=== PATIENT | male | born 1940 | race American Indian/Alaskan Native ===

== ENCOUNTER 2021-11-28 14:49 | Inpatient (IN) | payer MEDICARE, OTHER ==
--- NOTE | 2021-11-28 16:25 | Emergency Department Report ---
ED Fall HPI - General Chief Complaint: Fall Stated Complaint: FALL,LT LEG PAIN Time Seen by Provider: 11/28/21 15:34 Source: patient, EMS Mode of arrival: Stretcher Limitations: Other (Dementia) - History of Present Illness Initial Comments: 81-year-old male with a past medical history dementia, diabetes, hypertension presents to the hospital status post multiple falls. Collateral history obtained by nurse from patient's granddaughter. Patient was recently discharged from the hospital into rehab for 9 days. He has been home x1 week. Since then he has had 2 falls. First fall occurred last week and was unwitnessed. Patient was found down on the floor. Complaining of left hip pain since. Today 2 days ago patient had another fall. He is not reliable using his rolling walker as prescribed. Patient complains of left hip pain without other injury. - Related Data Allergies Allergy/AdvReac Type Severity Reaction Status Date / Time No Known Allergies Allergy Verified 11/28/21 15:21 ED Review of Systems ROS: Stated complaint: FALL,LT LEG PAIN Other details as noted in HPI Comment: All other systems reviewed and negative ED Past Medical Hx - Past Medical History Hx Hypertension: Yes Hx Diabetes: Yes Hx Dementia: Yes Additional medical history: hyperlipidemia ED Physical Exam - General Limitations: Physical Limitation - Other Other exam information: General: No acute distress Head: Atraumatic Eyes: normal appearance ENT: Moist mucous membranes Neck: Normal appearance, no midline tenderness Chest: Clear to auscultation bilaterally CV: Regular rate and rhythm Abdomen: Soft, normal bowel sounds, nontender, nondistended, no rebound or guarding Back: Normal inspection Extremity: Left hip pain with movement. No tenderness to left knee, left ankle, foot. Limited motion of left hip secondary to pain. Full passive motion of the right hip without grimace or pain Neuro: Alert O x 3, no facial asymmetry, speech clear, no gross motor sensory deficit Psych: Appropriate behavior Skin: No rash ED Course Vital Signs 11/28/21 11/28/21 11/28/21 15:17 15:36 15:39 Temperature 98.7 F Pulse Rate 96 H 98 H Respiratory 16 25 H 20 Rate Blood Pressure 141/85 Blood Pressure 148/88 [Left] O2 Sat by Pulse 98 89 Oximetry 11/28/21 11/28/21 11/28/21 15:41 15:43 15:45 Temperature Pulse Rate 94 H 96 H 94 H Respiratory 24 26 H 20 Rate Blood Pressure 141/85 141/85 141/85 Blood Pressure [Left] O2 Sat by Pulse 99 79 L 100 Oximetry 11/28/21 11/28/21 11/28/21 15:47 15:49 15:50 Temperature Pulse Rate 94 H 92 H 94 H Respiratory 25 H 28 H 24 Rate Blood Pressure 141/85 141/85 141/85 Blood Pressure [Left] O2 Sat by Pulse 100 Oximetry 11/28/21 11/28/21 11/28/21 15:54 15:56 15:58 Temperature Pulse Rate 94 H 94 H 95 H Respiratory 27 H 16 23 Rate Blood Pressure 141/85 141/85 141/85 Blood Pressure [Left] O2 Sat by Pulse 100 100 100 Oximetry 11/28/21 11/28/21 11/28/21 16:00 16:02 16:04 Temperature Pulse Rate 94 H 94 H 94 H Respiratory 16 23 24 Rate Blood Pressure 141/85 141/85 141/85 Blood Pressure [Left] O2 Sat by Pulse 100 96 98 Oximetry 11/28/21 11/28/21 11/28/21 16:06 16:13 16:15 Temperature Pulse Rate 94 H 91 H Respiratory 22 24 Rate Blood Pressure 141/85 141/85 141/85 Blood Pressure [Left] O2 Sat by Pulse 100 99 100 Oximetry 11/28/21 11/28/21 11/28/21 16:17 16:19 16:20 Temperature Pulse Rate 90 91 H 92 H Respiratory 26 H 27 H 24 Rate Blood Pressure 141/85 127/78 127/78 Blood Pressure [Left] O2 Sat by Pulse 96 86 93 Oximetry 11/28/21 11/28/21 11/28/21 16:22 16:25 16:27 Temperature Pulse Rate 91 H 91 H 90 Respiratory 23 25 H 27 H Rate Blood Pressure 113/77 113/77 113/77 Blood Pressure [Left] O2 Sat by Pulse 99 99 99 Oximetry 11/28/21 11/28/21 11/28/21 16:29 16:31 16:32 Temperature Pulse Rate 89 95 H Respiratory 25 H 27 H 10 L Rate Blood Pressure 113/77 113/77 141/85 Blood Pressure [Left] O2 Sat by Pulse 99 100 97 Oximetry 11/28/21 11/28/21 11/28/21 16:35 16:37 16:39 Temperature Pulse Rate 89 91 H 89 Respiratory 27 H 26 H 24 Rate Blood Pressure 113/77 113/77 113/77 Blood Pressure [Left] O2 Sat by Pulse 100 100 94 Oximetry 11/28/21 11/28/21 11/28/21 16:41 16:42 16:45 Temperature Pulse Rate 90 88 101 H Respiratory 26 H 28 H 13 Rate Blood Pressure 113/77 113/77 133/79 Blood Pressure [Left] O2 Sat by Pulse 97 100 78 L Oximetry 11/28/21 11/28/21 11/28/21 16:47 16:49 16:51 Temperature Pulse Rate 89 94 H 94 H Respiratory 22 26 H 26 H Rate Blood Pressure 141/85 141/85 141/85 Blood Pressure [Left] O2 Sat by Pulse 100 99 Oximetry 11/28/21 11/28/21 11/28/21 16:53 16:55 16:57 Temperature Pulse Rate 97 H 94 H 94 H Respiratory 23 26 H 24 Rate Blood Pressure 141/85 141/85 141/85 Blood Pressure [Left] O2 Sat by Pulse 100 91 94 Oximetry 11/28/21 11/28/21 11/28/21 16:59 17:01 17:02 Temperature Pulse Rate 93 H 95 H 94 H Respiratory 27 H 20 24 Rate Blood Pressure 141/85 141/85 133/74 Blood Pressure [Left] O2 Sat by Pulse 100 96 100 Oximetry 11/28/21 11/28/21 11/28/21 17:05 17:07 17:09 Temperature Pulse Rate 96 H 94 H 95 H Respiratory 26 H 22 26 H Rate Blood Pressure 133/74 133/74 133/74 Blood Pressure [Left] O2 Sat by Pulse 84 98 95 Oximetry 11/28/21 11/28/21 11/28/21 17:11 17:13 17:15 Temperature Pulse Rate 94 H 93 H 95 H Respiratory 23 25 H 26 H Rate Blood Pressure 133/74 133/74 133/74 Blood Pressure [Left] O2 Sat by Pulse 100 96 100 Oximetry 11/28/21 11/28/21 11/28/21 17:17 17:19 17:21 Temperature Pulse Rate 94 H 94 H 97 H Respiratory 28 H 26 H 21 Rate Blood Pressure 133/74 133/74 133/74 Blood Pressure [Left] O2 Sat by Pulse 99 100 100 Oximetry 11/28/21 11/28/2111/28/22 17:23 17:25 17:27 Temperature Pulse Rate 97 H 97 H 93 H Respiratory 25 H 17 24 Rate Blood Pressure 138/84 138/84 138/84 Blood Pressure [Left] O2 Sat by Pulse 82 L 91 96 Oximetry 11/28/21 11/28/21 11/28/21 17:29 17:31 17:33 Temperature Pulse Rate 95 H 96 H 97 H Respiratory 24 23 16 Rate Blood Pressure 138/84 138/84 138/84 Blood Pressure [Left] O2 Sat by Pulse 91 99 Oximetry 11/28/21 11/28/21 11/28/21 17:35 17:37 17:39 Temperature Pulse Rate 96 H 98 H 95 H Respiratory 19 21 19 Rate Blood Pressure 138/84 138/84 138/84 Blood Pressure [Left] O2 Sat by Pulse 100 Oximetry 11/28/21 11/28/21 11/28/21 17:41 17:43 17:45 Temperature Pulse Rate 98 H 97 H 97 H Respiratory 25 H 28 H 29 H Rate Blood Pressure 138/84 120/75 120/75 Blood Pressure [Left] O2 Sat by Pulse 100 99 100 Oximetry 11/28/21 11/28/21 17:47 17:49 Temperature Pulse Rate 99 H 98 H Respiratory 29 H 25 H Rate Blood Pressure 120/75 120/75 Blood Pressure [Left] O2 Sat by Pulse 96 Oximetry - Consultations Consultation #1: 11/28/21 18:[address] Vela orthopedic surgery who has agreed to consult and manage patient's orthopedic issues. ED Medical Decision Making - Lab Data Result diagrams: 11/28/21 17:14 11/28/21 17:14 Lab Results 11/28/21 11/28/21 11/28/21 Range/Units 16:59 17:14 17:14 WBC 10.2 (4.5-11.0) K/mm3 RBC 4.63 (3.65-5.03) M/mm3 Hgb 15.0 (11.8-15.2) gm/dl Hct 44.7 (35.5-45.6) % MCV 97 H (84-94) fl MCH 32 (28-32) pg MCHC 34 (32-34) % RDW 15.4 H (13.2-15.2) % Plt Count 167 (140-440) K/mm3 Lymph % (Auto) 15.3 (13.4-35.0) % [place] % (Auto) 13.0 H (0.0-7.3) % Eos % (Auto) 3.1 (0.0-4.3) % Baso % (Auto) 0.4 (0.0-1.8) % Lymph # (Auto) 1.6 (1.2-5.4) K/mm3 [place] # (Auto) 1.3 H (0.0-0.8) K/mm3 Eos # (Auto) 0.3 (0.0-0.4) K/mm3 Baso # (Auto) 0.0 (0.0-0.1) K/mm3 Seg Neutrophils % 68.2 (40.0-70.0) % Seg Neutrophils # 6.9 (1.8-7.7) K/mm3 Sodium 149 H (137-145) mmol/L Potassium 3.7 (3.6-5.0) mmol/L Chloride 112.6 H (98-107) mmol/L Carbon Dioxide 25 (22-30) mmol/L Anion Gap 15 mmol/L BUN 18 (9-20) mg/dL Creatinine 0.8 (0.8-1.3) mg/dL Estimated GFR > 60 ml/min BUN/Creatinine Ratio 23 % Glucose 103 H (75-100) mg/dL Calcium 9.2 (8.4-10.2) mg/dL Total Bilirubin 0.90 (0.1-1.2) mg/dL AST 22 (5-40) units/L ALT 14 (7-56) units/L Alkaline Phosphatase 83 (35-129) units/L Total Creatine Kinase 621 H (55-170) units/L CK-MB (CK-2) 1.9 (0.0-4.0) ng/mL CK-MB (CK-2) Rel Index 0.3 (0-4) Troponin T < 0.010 (0.00-0.029) ng/mL Total Protein 6.9 (6.3-8.2) g/dL Albumin 4.0 (3.9-5) g/dL Albumin/Globulin Ratio 1.4 % Urine Color Yellow (Yellow) Urine Turbidity Clear (Clear) Specific [place] (Man) 1.010 (1.003-1.030) Ur Protein (Man) Negative (Negative) mg/dL Ur Ketones (Man) Negative (Negative) Ur Nitrite (Man) Negative (Negative) Ur Reducing Substances Not Reportable Urine Bilirubin (Man) Negative (Negative) Urine Ictotest Not Reportable Leukocyte Esterase (Man) Negative (Negative) Urine WBC (Auto) 1.0 (0.0-6.0) /HPF Urine RBC (Auto) 4.0 (0.0-6.0) /HPF U Epithel Cells (Auto) 2.0 (0-13.0) /HPF Urine RBC (Manual) Negative (Negative) Urine Mucus Few /HPF - EKG Data -: EKG Interpreted by Me (Inferior Q waves) EKG shows normal: sinus rhythm, ST-T waves (No STEMI) Rate: normal - Radiology Data Radiology results: report reviewed CT head/brain wo con INDICATION: Multiple falls. TECHNIQUE: All CT scans at this location are performed using CT dose reduction for ALARA by means of automated exposure control. COMPARISON: None available. FINDINGS: There is no evidence of hemorrhage, hydrocephalus, brain edema, or mass effect/mass lesion. There are generalized changes of advancing age with age-commensurate generalized ventricular and cisternal/sulcal prominence without superimposed focal brain atrophy. There is mild mucosal thickening in the right sphenoid sinus. The other par anasal sinuses are clear. IMPRESSION: 1. No acute findings. CT CERVICAL SPINE WITHOUT CONTRAST INDICATION: multple falls. TECHNIQUE: Axial CT images of the spine were obtained. Sagittal and coronal reformatted images were produced. All CT scans at this location are performed using CT dose reduction for ALARA by means of automated exposure control. COMPARISON: None available. FINDINGS: ACUTE FRACTURE(S) OR SUBLUXATION: None. 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 PARASPINAL SOFT TISSUES: No soft tissue swelling or other acute abnormalities. ADDITIONAL FINDINGS: No significant additional findings. IMPRESSION: 1. No acute fracture or subluxation in the spine in neutral position. LEFT HIP 2 VIEWS INDICATION / CLINICAL INFORMATION: fall, hip pain. COMPARISON: None available. FINDINGS: BONES / JOINT(S): Impacted femoral neck fracture is not well evaluated due to difficulty with positioning. Underlying osteopenia. 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 SOFT TISSUES: Atherosclerotic vascular calcification. ADDITIONAL FINDINGS: None. - Medical Decision Making 81-year-old male with several falls at home since discharge from the rehab facility presenting with left hip pain. X-ray reveals femoral neck fracture. CT head and cervical spine unremarkable without signs of trauma to head and neck. Labs and urine unremarkable. patient will be admitted to the hospital service for further treatment Patient deftly has underlying dementia and required IM sedation to obtain IV access Critical Care Time: No Critical care attestation.: If time is entered above; I have spent that time in minutes in the direct care of this critically ill patient, excluding procedure time. ED Disposition Clinical Impression: Closed left hip fracture, Fall, Dementia Disposition: ADMITTED INPATIENT Is pt being admited?: Yes Condition: Stable Time of Disposition: 19:49 (DR Martines/hosptialist)
--- NOTE | 2021-11-28 17:00 | XRay Report ---
LEFT HIP 2 VIEWS INDICATION / CLINICAL INFORMATION: fall, hip pain. COMPARISON: None available. FINDINGS: BONES / JOINT(S): Impacted femoral neck fracture is not well evaluated due to difficulty with positio arelis. Underlying osteopenia. 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 SOFT TISSUES: Atherosclerotic vascular calcification. ADDITIONAL FINDINGS: None. Signer Name: Francis Payton MD Signed: 11/28/2021 4:56 PM Workstation Name: [employer]
[2021-11-28 17:32] LABS: Mucus,Urine FEW /HPF
[2021-11-28 17:38] LABS: Color,Urine Yellow (Yellow)
[2021-11-28 17:45] LABS: Basophils % (Auto) 0.4 % (0.0-1.8); Eosinophils # (Auto) 0.3 K/mm3 (0.0-0.4); Eosinophils % (Auto) 3.1 % (0.0-4.3); Hematocrit 44.7 % (35.5-45.6); Lymphocytes # (Auto) 1.6 K/mm3 (1.2-5.4); Lymphocytes % (Auto) 15.3 % (13.4-35.0); Mean Corpuscular HGB Conc 34 % (32-34); Mean Corpuscular Volume 97 fl (84-94); Monocytes # (Auto) 1.3 K/mm3 (0.0-0.8); Platelet Count 167 K/mm3 (140-440); Red Blood Count 4.63 M/mm3 (3.65-5.03); Red Cell Distribution Width 15.4 % (13.2-15.2)
[2021-11-28 17:59] LABS: Creatine Kinase MB 1.9 ng/mL (0.0-4.0)
[2021-11-28 18:01] LABS: Alanine Aminotransferase 14 units/L (7-56); BUN/Creatinine Ratio 23; Blood Urea Nitrogen 18 mg/dL (9-20); Calcium 9.2 mg/dL (8.4-10.2); Hemolysis Index 13
[2021-11-28] MEDS ORDERED: ONDANSETRON 4 MG/2 ML INJ IV ONE (18:01)
[2021-11-28] MEDS ORDERED: MORPHINE 4 MG/1 ML INJ IV ONE (18:01)
--- NOTE | 2021-11-28 19:43 | Cat Scan Report ---
CT head/brain wo con INDICATION: Multiple falls. TECHNIQUE: All CT scans at this location are performed using CT dose reduction for ALARA by means of automated e xposure control. COMPARISON: None available. FINDINGS: There is no evidence of hemorrhage, hydrocephalus, brain edema, or mass effect/mass lesion. There are generalized changes of advancing age with age-commensurate generalized ventricular and cisternal/sul sathya prominence without superimposed focal brain atrophy. There is mild mucosal thickening in the right sphenoid sinus. The other paranasal sinuses are clear. IMPRESSION: 1. No acute findings. Signer Name: Surya Duarte MD Signed: 11/28/2021 7:39 PM Workstation Name: [id number]
--- NOTE | 2021-11-28 19:44 | Cat Scan Report ---
CT CERVICAL SPINE WITHOUT CONTRAST INDICATION: multple falls. TECHNIQUE: Axial CT images of the spine were obtained. Sagittal and coronal reformatted images were produced. Al l CT scans at this location are performed using CT dose reduction for ALARA by means of automated exp osure control. COMPARISON: None available. FINDINGS: ACUTE FRACTURE(S) OR SUBLUXATION: None. SPINAL DEGENERATIVE CHANGES: There is DISH and ossification of the posterior longitudinal ligament th roughout the cervical spine with resultant moderate canal stenosis at multiple levels. PARASPINAL SOFT TISSUES: No soft tissue swelling or other acute abnormalities. ADDITIONAL FINDINGS: No significant additional findings. IMPRESSION: 1. No acute fracture or subluxation in the spine in neutral position. Signer Name: Surya Duarte MD Signed: 11/28/2021 7:40 PM Workstation Name: [id number]
[2021-11-28] MEDS ORDERED: HALOPERIDOL LACTATE 5 MG/1 ML INJ IM ONE (19:58)
[2021-11-28] MEDS ORDERED: ONDANSETRON 4 MG/2 ML INJ IV PRN (20:27)
[2021-11-28] MEDS ORDERED: HYDROmorphone 0.5 MG/0.5 ML INJ IV PRN (20:27)
[2021-11-28] MEDS ORDERED: oxyCODONE /ACETAMINOPHEN 5-325MG TAB PO PRN (20:27)
[2021-11-28] MEDS ORDERED: ALBUTEROL 2.5 MG/3 ML NEBU IH PRN (20:27)
[2021-11-28] MEDS ORDERED: ACETAMINOPHEN 325 MG TAB PO PRN (20:27)
--- NOTE | 2021-11-28 20:27 | History and Physical Report ---
History of Present Illness Chief complaint: He fell and hurt his leg History of present illness: 81 YO Male with Vascular Dementia with Behavioral Disturbance, Cerebral Atherosclerosis, HTN, DM, HLD, Metabolic Syndrome, Recurrent Fall presents to ED for evaluation. Patient has diminished cognition and is unable to provide history. Patient history per EMS staff, ED staff, as well as patient family was made available by telephone for interview. As per family the patient experienced increased weakness and confusion over the past 2 weeks. Patient also has experienced multiple falls. Patient fell landing on his left side 2 days ago and experienced pain in his left hip with inability to ambulate since that time. Patient has complained of persistent and worsening pain in his left hip. EMS was notified and upon arrival the patient was found to be in distress and subsequent transported to [facility] for further care and evaluation of the aforementioned symptoms. The patient was seen and evaluated in the emergency department. All lab and imaging studies reviewed. Patient underwent x-ray of the hip and was found to have a left femoral neck fracture. Orthopedic surgery service consulted. Patient pending surgical intervention. No reports of fever, chills, chest pain, palpitation, adductive cough, skin rash, recent contact, known exposure to COVID-19. No prior admission for review. No medication listed at time of admission for reconciliation. Advanced care planning conducted in ED. Past History Past Medical History: diabetes, hypertension, hyperlipidemia, other (See HPI) Past Surgical History: No surgical history, Other (Reviewed) Social history: . denies: smoking, alcohol abuse, prescription drug abuse Family history: diabetes, hypertension Medications and Allergies Allergies Allergy/AdvReac Type Severity Reaction Status Date / Time No Known Allergies Allergy Verified 11/28/21 15:21 Review of Systems ROS unobtainable: due to mental status Exam - Constitutional Vitals: Temp Pulse Resp BP Pulse Ox 98.0 F 91 H 18 140/85 96 11/28/21 20:09 11/28/21 20:09 11/28/21 20:09 11/28/21 20:11/28/21 20:09 General appearance: Present: mild distress - EENT Eyes: Present: PERRL ENT: hearing intact, clear oral mucosa - Neck Neck: Present: supple, normal ROM - Respiratory Respiratory effort: normal Respiratory: bilateral: CTA - Cardiovascular Heart Sounds: Present: S1 & S2. Absent: rub, click - Extremities Extremities: pulses symmetrical, No edema Extremity abnormal: edema, tenderness, other (Left hip) Peripheral Pulses: within normal limits - Abdominal General gastrointestinal: Present: soft, non-tender, non-distended, normal bowel sounds Male genitourinary: Present: normal - Integumentary Integumentary: Present: clear, warm, dry - Musculoskeletal Musculoskeletal: gait normal, strength equal bilaterally - Psychiatric Psychiatric: no appropriate mood/affect, no intact judgment & insight, no memory intact - Neurologic Neurologic: CNII-XII intact, moves all extremities, no gait normal HEART Score - HEART Score Troponin: Troponin T < 0.010 ng/mL (0.00-0.029) 11/28/21 17:14 Results - Labs CBC & Chem 7: 11/28/21 17:14 11/28/21 17:14 Labs: Abnormal lab results 11/28/21 11/28/21 Range/Units 17:14 17:14 MCV 97 H (84-94) fl RDW 15.4 H (13.2-15.2) % [place] % (Auto) 13.0 H (0.0-7.3) % [place] # (Auto) 1.3 H (0.0-0.8) K/mm3 Sodium 149 H (137-145) mmol/L Chloride 112.6 H (98-107) mmol/L Glucose 103 H (75-100) mg/dL Total Creatine Kinase 621 H (55-170) units/L Assessment and Plan - Patient Problems (1) Closed left hip fracture Current Visit: Yes Status: Acute Qualifiers: Encounter type: initial encounter Qualified Code(s): S72.002A - Fracture of unspecified part of neck of left femur, initial encounter for closed fracture Plan to address problem: X-ray left hip, CT cervical spine, pain control, n.p.o. after midnight, orthopedic surgery team consulted. Patient pending surgical intervention. (2) Vascular dementia with behavioral disturbance Current Visit: Yes Status: Acute Plan to address problem: verbal prompting, verbal redirection, benzodiazepine therapy as clinically indicated. (3) Cerebral atherosclerosis Current Visit: Yes Status: Acute Plan to address problem: Risk factor reduction, antiplatelet therapy as clinically indicated. (4) Hypertension Current Visit: Yes Status: Acute Qualifiers: Hypertension type: primary hypertension Qualified Code(s): I10 - Essential (primary) hypertension Plan to address problem: Monitor blood pressure every shift, continue medical management. (5) Diabetes Current Visit: Yes Status: Acute Plan to address problem: Consistent carbohydrate diet, Accu-Chek, insulin protocol, hypoglycemia protocol (6) Hyperlipidemia Current Visit: Yes Status: Acute Qualifiers: Hyperlipidemia type: mixed hyperlipidemia Qualified Code(s): E78.2 - Mixed hyperlipidemia Plan to address problem: Low-cholesterol diet, supportive care. (7) Obesity (BMI 30.0-34.9) Current Visit: Yes Status: Acute Plan to address problem: Balanced diet, increase physical activity discharge. (8) Metabolic syndrome Current Visit: Yes Status: Acute Plan to address problem: Blood pressure control, weight reduction, diabetes control, risk factor reduction. (9) DVT prophylaxis Current Visit: Yes Status: Acute Plan to address problem: SCD to bilateral lower extremities while in bed (10) Advance care planning Current Visit: Yes Status: Acute Plan to address problem: Disease education conducted, care plan discussed, diagnoses discussed, prognosis discussed, patient is full code, +30 minutes. (11) Preventative health care Current Visit: Yes Status: Acute Plan to address problem: Patient family counseled regarding home safety precautions, fall risk protocol, outpatient follow-up with primary care physician for all age and risk factor appropriate screening test. +30 minutes.
[2021-11-28] MEDS ORDERED: DEXTROSE 50% IN WATER (25GM) 50 ML SYRINGE IV PRN (20:28)
[2021-11-28] MEDS ORDERED: MORPHINE 4 MG/1 ML INJ ONE (20:55)
--- NOTE | 2021-11-28 23:12 | Cat Scan Report ---
CT PELVIS WITHOUT CONTRAST INDICATION / CLINICAL INFORMATION: left hip pain, r/o displaced femoral neck fx. TECHNIQUE: Axial CT images were obtained through the pelvis without contrast. [facility] CT dose reduction for ALARA by means of automated exposure control. COMPARISON: Left hip x-ray 11/28/2021 FINDINGS: Moderate bilateral facet arthropathy is demonstrated at L4-5 and L5-S1. Moderate diffuse osteopenia. Moderate right femoral acetabular joint degenerative change. No acute fracture of the right hip or ri ght hemipelvis. Left hemipelvis appears intact. No fracture of the left acetabulum. Moderately angulated subcapital femoral neck fracture of the left hip is demonstrated. Mild offset of fracture fragments present. Moderate diffuse intimal calcification of the aorta and iliofemoral vessels. Colonic diverticulosis without diverticulitis. Prior prostatectomy. IMPRESSION: 1. Minimally offset and angulated acute subcapital left femoral neck fracture. Signer Name: Saravanan Machado II, MD Signed: 11/28/2021 11:08 PM Workstation Name: [id number]
[2021-11-28] MEDS: INSULIN REGULAR, HUMAN 100 UNITS/1 ML SUB-Q SCH (23:13)
[2021-11-29 04:58] LABS: Blood Urea Nitrogen 16 mg/dL (9-20); Hemolysis Index 0
[2021-11-29 04:59] LABS: BUN/Creatinine Ratio 23
[2021-11-29] MEDS: SODIUM CHLORIDE 0.9% 1000 ML 1,000 ML IV SCH (06:29)
[2021-11-29] MEDS: INSULIN REGULAR, HUMAN 100 UNITS/1 ML SUB-Q SCH ×4 (09:26→22:35)
--- NOTE | 2021-11-29 13:39 | Progress Note ---
Assessment and Plan 81 y/o male with a history of dementia presented with c/o left hip pain after having a fall recently. patient unable to give exact details...xrays taken in ED reveal left femoral neck fracture. Orthopedic consulted and patient admitted for further evaluation and management. 11/29: X-ray: showed left femoral neck fracture. Orthopedics consulted, pending evaluation. Continue supportive care and pain management, IV fluid hydration. Possible surgery tomorrow morning, n.p.o. after midnight Assessment and plan: -- Closed left hip fracture X-ray left hip, CT cervical spine, pain control, n.p.o. after midnight, orthopedic surgery team consulted. Patient pending surgical intervention. -- Vascular dementia with behavioral disturbance verbal prompting, verbal redirection, benzodiazepine therapy as clinically indicated. -- Cerebral atherosclerosis Risk factor reduction, antiplatelet therapy as clinically indicated. -- Hypertension Monitor blood pressure every shift, continue medical management. -- Diabetes type II Consistent carbohydrate diet, Accu-Chek, insulin protocol, hypoglycemia protocol -- Hyperlipidemia Low-cholesterol diet, supportive care. -- Obesity (BMI 30.0-34.9) Balanced diet, increase physical activity discharge. -- Metabolic syndrome Blood pressure control, weight reduction, diabetes control, risk factor reduction. -- DVT prophylaxis SCD to bilateral lower extremities while in bed -- Full CODE STATUS Subjective Date of service: 11/29/21 Interval history: Patient seen and examined. Medical records and medication list reviewed. No acute event overnight noted by the RN. Patient denies any chest pain or difficulty breathing. Pending orthopedic consult, patient complains of left hip pain Discussed plan of care at bedside with patient. Objective - Exam Narrative Exam: GENERAL: well-developed and obese -Nigerian elderly male lying on bed appeared to be in no discomfort. HEENT: Normocephalic. Atraumatic. No conjunctival congestion or icterus. Patient has moist mucous membranes. NECK: Supple. Trachea midline. CHEST/LUNGS: Clear to auscultated bilaterally, breathing nonlabored. No wheezes crackles or rhonchi. HEART/CARDIOVASCULAR: Regular in rate and rhythm. S1 and S2 positive. ABDOMEN: Abdomen is soft, nontender. Patient has normal bowel sounds. SKIN: There is no rash. Warm and dry. NEURO: No focal motor deficit. Follows command. MUSCULOSKELETAL: Left leg externally rotated and bended. Unable to move left leg EXTRIMITY: No edema, no cyanosis or clubbing. PSYCH: Cooperative but confused. - Constitutional Vitals: Vital Signs - 12hr 11/29/21 11/29/21 11/29/21 05:37 08:29 10:08 Temperature 98.3 F 97.9 F Pulse Rate 82 76 Respiratory 20 18 Rate Blood Pressure 128/81 149/92 O2 Sat by Pulse 100 98 98 Oximetry - Labs CBC & Chem 7: 12/02/21 05:21 12/04/21 04:45 Labs: Abnormal lab results 11/28/21 11/28/21 11/29/21 Range/Units 17:14 17:14 04:20 MCV 97 H (84-94) fl RDW 15.4 H (13.2-15.2) % [place] % (Auto) 13.0 H (0.0-7.3) % [place] # (Auto) 1.3 H (0.0-0.8) K/mm3 Sodium 149 H 146 H (137-145) mmol/L Chloride 112.6 H 112.0 H (98-107) mmol/L Creatinine 0.7 L (0.8-1.3) mg/dL Glucose 103 H 120 H (75-100) mg/dL POC Glucose (70-105) mg/dL Total Creatine Kinase 621 H (55-170) units/L 11/29/21 Range/Units 07:30 MCV (84-94) fl RDW (13.2-15.2) % [place] % (Auto) (0.0-7.3) % [place] # (Auto) (0.0-0.8) K/mm3 Sodium (137-145) mmol/L Chloride (98-107) mmol/L Creatinine (0.8-1.3) mg/dL Glucose (75-100) mg/dL POC Glucose 108 H (70-105) mg/dL Total Creatine Kinase (55-170) units/L HEART Score - HEART Score Troponin: Troponin T < 0.010 ng/mL (0.00-0.029) 11/28/21 17:14
--- NOTE | 2021-11-29 14:19 | Consultation ---
History of Present Illness - HPI Consult date: 11/29/21 Consult reason: fracture History of present illness: 81 y/o male with c/o left hip pain after fall recently, hx of dementia and unable to give exact details...xrays taken in ED reveal left femoral neck fracture... Past History Past Medical History: diabetes, hypertension, hyperlipidemia, other (See HPI) Past Surgical History: No surgical history, Other (Reviewed) Social history: . denies: smoking, alcohol abuse, prescription drug abuse Family history: diabetes, hypertension Medications and Allergies Allergies Allergy/AdvReac Type Severity Reaction Status Date / Time No Known Allergies Allergy Verified 11/28/21 15:21 Active Meds: Active Medications Acetaminophen (Acetaminophen 325 Mg Tab) 650 mg PO Q4H PRN PRN Reason: Pain MILD(1-3)/Fever >100.5/[place] Albuterol (Albuterol 2.5 Mg/3 Ml Nebu) 2.5 mg IH Q4HRT PRN PRN Reason: Shortness Of Breath Dextrose (Dextrose 50% In Water (25gm) 50 Ml Syringe) 50 ml IV Q30MIN PRN; Protocol PRN Reason: Hypoglycemia Hydromorphone HCl (Hydromorphone 0.5 Mg/0.5 Ml Inj) 0.5 mg IV Q3H PRN PRN Reason: Pain , Severe (7-10) Sodium Chloride (Nacl 0.9% 1000 Ml) 1,000 mls @ 42 mls/hr IV DIRECT FLORINDA Last Admin: 11/29/21 06:29 Dose: 42 mls/hr Insulin Human Regular (Insulin Regular, Human 100 Units/1 Ml) 0 units SUB-Q ACHS FLORINDA; Protocol Last Admin: 11/29/21 12:36 Dose: Not Given Ondansetron HCl (Ondansetron 4 Mg/2 Ml Inj) 4 mg IV Q8H PRN PRN Reason: Nausea And Vomiting Oxycodone/Acetaminophen (Oxycodone /Acetaminophen 5-325mg Tab) 1 tab PO Q6H PRN PRN Reason: Pain, Moderate (4-6) Sodium Chloride (Sodium Chloride 0.9% 10 Ml Flush Syringe) 10 ml IV BID [facility] Last Admin: 11/29/21 09:27 Dose: 10 ml Sodium Chloride (Sodium Chloride 0.9% 10 Ml Flush Syringe) 10 ml IV PRN PRN PRN Reason: LINE FLUSH Physical Examination - Physical exam Narrative exam: LLE - ++ shortening and externally rotated, dec PROM, mild swelling, distal n/v intact.... Eyes: PERRL ENT: Positive: clear oral mucosa Respiratory effort: normal Respiratory: bilateral: CTA Rhythm: regular Heart Sounds: Positive: S1 & S2 General gastrointestinal: Positive: soft, non-tender, non-distended, normal bowel sounds Integumentary: clear, warm, dry Neurologic: Positive: CNII-XII intact, moves all extremities, gait normal. Negative: focal deficits Assessment and Plan Assessment - left femoral neck fx displaced plan - bipolar hemiarthroplasty, PT and rehab if necessary
[2021-11-30] MEDS: INSULIN REGULAR, HUMAN 100 UNITS/1 ML SUB-Q SCH ×3 (09:12→17:15)
--- NOTE | 2021-11-30 09:42 | Electrocardiograph Report ---
[facility] Test Date: 2021-11-28 Test Time: 16:26:46 Pat Name: JARON RAYO Department: Room: A373 1 Gender: M Multiple Needle Stitcher: NICOLAS : 1940 Requested By: SUDHAKAR RUGGIERO Order Number: [id number] Reading MD: Salvatore Atkinson Measurements Intervals [place] Rate: 90 P: 28 AR: 198 QRS: -87 QRSD: 93 T: 57 QT: 348 QTc: 426 Interpretive Statements Sinus rhythm Probable left atrial enlargement nonspecific st-t No previous ECG available for comparison Electronically Signed On 11-30-2021 9:42:34 EDT by Salvatore Atkinson
--- NOTE | 2021-11-30 12:40 | Anesthesia Consultation ---
Anesthesia Consult and Med Hx Date of service: 11/30/21 - Airway Anesthetic Teeth Evaluation: Poor (multiple missing, broken teeth) ROM Head & Neck: Adequate Mental/Hyoid Distance: Adequate Mallampati Class: Class III Intubation Access Assessment: Possibly Difficult - Pre-Operative Health Status ASA Pre-Surgery Classification: ASA3 Proposed Anesthetic Plan: General - Pulmonary Hx Smoking: No (unknown) - Cardiovascular System Hx Hypertension: Yes - Central Nervous System Hx Back Pain: Yes (closed left hip fracture) Hx Psychiatric Problems: Yes (vascular dementia with behavior disturbance) - Endocrine Hx Non-Insulin Dependent Diabetes: Yes - Other Systems Hx Obesity: Yes (BMI 33.2)
--- NOTE | 2021-11-30 14:27 | Progress Note ---
Assessment and Plan 81 y/o male with a history of dementia presented with c/o left hip pain after having a fall recently. patient unable to give exact details...xrays taken in ED reveal left femoral neck fracture. Orthopedic consulted and patient admitted fo r further evaluation and management. 11/29: X-ray: showed left femoral neck fracture. Orthopedics consulted, pending evaluation. Continue supportive care and pain management, IV fluid hydration. Possible surgery tomorrow morning, n.p.o. after midnight 11/30: Plan for left hip surgery today. N.p.o. now, continue IV fluid. Continue pain management and supportive care. Patient appears agitated, ordered for restraint. Assessment and plan: -- Closed left hip fracture X-ray left hip, CT cervical spine, pain control, n.p.o. now, orthopedic surgery team consulted. Patient pending surgical intervention. -- Vascular dementia with behavioral disturbance verbal prompting, verbal redirection, benzodiazepine therapy as clinically indicated. -- Cerebral atherosclerosis Risk factor reduction, antiplatelet therapy as clinically indicated. -- Hypertension Monitor blood pressure every shift, continue medical management. -- Diabetes type II Consistent carbohydrate diet, Accu-Chek, insulin protocol, hypoglycemia protocol -- Hyperlipidemia Low-cholesterol diet, supportive care. -- Obesity (BMI 30.0-34.9) Balanced diet, increase physical activity discharge. -- Metabolic syndrome Blood pressure control, weight reduction, diabetes control, risk factor redu ction. -- DVT prophylaxis SCD to bilateral lower extremities while in bed -- Full CODE STATUS Subjective Date of service: 11/30/21 Interval history: Patient seen and examined. Medical records and medication list reviewed. No acute event overnight noted by the RN. Patient denies any chest pain or difficulty breathing. Patient appears little agitated today, ordered for restraint N.p.o. now, plan for left hip surgery today Discussed plan of care at bedside with patient's RN. Objective - Exam Narrative Exam: GENERAL: well-developed and obese -Algerian elderly male lying on bed appeared to be in no discomfort. HEENT: Normocephalic. Atraumatic. No conjunctival congestion or icterus. Patient has moist mucous membranes. NECK: Supple. Trachea midline. CHEST/LUNGS: Clear to auscultated bilaterally, breathing nonlabored. No wheezes crackles or rhonchi. HEART/CARDIOVASCULAR: Regular in rate and rhythm. S1 and S2 positive. ABDOMEN: Abdomen is soft, nontender. Patient has normal bowel sounds. SKIN: There is no rash. Warm and dry. NEURO: No focal motor deficit. Follows command. MUSCULOSKELETAL: Left leg externally rotated and bended. Unable to move left leg EXTRIMITY: No edema, no cyanosis or clubbing. PSYCH: confused. - Constitutional Vitals: Vital Signs - 12hr 11/30/21 11/30/21 11/30/21 06:39 07:52 11:43 Temperature 98.1 F 98.3 F Pulse Rate 77 80 Respiratory 20 18 Rate Blood Pressure 143/79 154/78 O2 Sat by Pulse 96 98 95 Oximetry - Labs CBC & Chem 7: 12/02/21 05:21 12/04/21 04:45 HEART Score - HEART Score Troponin: Troponin T < 0.010 ng/mL (0.00-0.029) 11/28/21 17:14
--- NOTE | 2021-11-30 21:44 | Progress Note ---
Assessment and Plan Assessment - left femoral neck fx displaced plan - bipolar hemiarthroplasty, PT and rehab if necessary Subjective Date of service: 11/30/21 Interval history: patient seen earlier today, appeared to be resting comfortably, Objective Vital signs: Vital Signs - 12hr 11/30/21 11/30/21 11:43 21:37 Temperature 98.3 F Pulse Rate 80 Respiratory 18 Rate Blood Pressure 154/78 O2 Sat by Pulse 95 96 Oximetry Narrative Exam: LLE - ++ shortening and externally rotated, dec PROM, mild swelling, distal n/v intact.... - Labs CBC & BMP: 11/28/21 17:14 11/29/21 04:20
[2021-12-01] MEDS: INSULIN REGULAR, HUMAN 100 UNITS/1 ML SUB-Q SCH ×5 (00:24→22:18)
[2021-12-01] MEDS: SODIUM CHLORIDE 0.9% 1000 ML 1,000 ML IV SCH (06:13)
[2021-12-01 06:53] LABS: Basophils # (Auto) 0.1 K/mm3 (0.0-0.1); Basophils % (Auto) 0.6 % (0.0-1.8); Eosinophils # (Auto) 0.2 K/mm3 (0.0-0.4); Eosinophils % (Auto) 1.9 % (0.0-4.3); Hematocrit 47.3 % (35.5-45.6); Hemoglobin 15.1 gm/dl (11.8-15.2); Lymphocytes # (Auto) 1.3 K/mm3 (1.2-5.4); Lymphocytes % (Auto) 14.3 % (13.4-35.0); Mean Corpuscular HGB Conc 32 % (32-34); Mean Corpuscular Volume 98 fl (84-94); Monocytes # (Auto) 0.9 K/mm3 (0.0-0.8); Monocytes % (Auto) 9.5 % (0.0-7.3); Platelet Count 122 K/mm3 (140-440); Red Blood Count 4.84 M/mm3 (3.65-5.03); Red Cell Distribution Width 14.9 % (13.2-15.2)
[2021-12-01 07:08] LABS: BUN/Creatinine Ratio 20; Blood Urea Nitrogen 16 mg/dL (9-20); Calcium 9.4 mg/dL (8.4-10.2); Hemolysis Index 5
--- NOTE | 2021-12-01 10:45 | Anesthesia Day of Surgery ---
Anesthesia Day of Surgery - Day of Surgery Patient Examined: Yes Patient H&P Reviewed: Yes Patient is NPO: Yes
[2021-12-01] MEDS ORDERED: D5W/0.45% NACL 1,000 ML IV SCH (11:00)
[2021-12-01] MEDS ORDERED: LACTATED RINGERS 1,000 ML ONE (11:08)
[2021-12-01] MEDS: LACTATED RINGERS 1,000 ML IV SCH ×2 (11:15→22:33)
[2021-12-01] MEDS ORDERED: TRANEXAMIC ACID 1,000 MG/10 ML ONE (12:13)
[2021-12-01] MEDS ORDERED: KETOROLAC 30 MG/1 ML INJ ONE (12:13)
[2021-12-01] MEDS ORDERED: SODIUM CHLORIDE 0.9% 50 ML ONE (12:14)
[2021-12-01] MEDS ORDERED: BUPIVACAINE-EPINEPHRINE/PF 0.5%-1:200,000 (10 ML) VIAL INFILTRATI ONE (12:14)
[2021-12-01] MEDS ORDERED: MORPHINE 10 MG/1 ML INJ ONE (12:14)
[2021-12-01] MEDS ORDERED: SODIUM CHLORIDE 0.9% 100 ML ONE (12:15)
[2021-12-01] MEDS ORDERED: LIDOCAINE MPF (2%) 20 MG/1 ML VIAL 5 ML ONE (12:28)
[2021-12-01] MEDS ORDERED: ROCURONIUM 50 MG/5 ML INJ IV ONE (12:28)
[2021-12-01] MEDS ORDERED: propofoL 200 MG/20 ML VIAL IV ONE (12:29)
[2021-12-01] MEDS ORDERED: fentaNYL 100 MCG/2 ML INJ ONE (12:29)
[2021-12-01] MEDS ORDERED: ceFAZolin/Water 2 GM/20 ML 2 GM/20 ML SYRINGE IV ONE (12:36)
[2021-12-01] MEDS ORDERED: ceFAZolin/STERILE WATER 2 GM/20 ML SYRINGE IV NR (13:00)
[2021-12-01] MEDS ORDERED: ePHEDrine SULFATE 50 MG/1 ML INJ ONE (13:04)
[2021-12-01] MEDS ORDERED: HYDROmorphone 0.5 MG/0.5 ML INJ ONE (13:48)
[2021-12-01] MEDS ORDERED: HYDROmorphone 0.5 MG/0.5 ML INJ IV PRN (14:20)
[2021-12-01] MEDS ORDERED: GLYCOPYRROLATE 0.4 MG/2 ML INJ ONE (14:34)
[2021-12-01] MEDS ORDERED: MORPHINE 4 MG/1 ML INJ IV PRN (14:36)
[2021-12-01] MEDS ORDERED: KETOROLAC 30 MG/1 ML INJ IV PRN (14:36)
[2021-12-01] MEDS ORDERED: IBUPROFEN 600 MG TAB PO PRN (14:36)
[2021-12-01] MEDS ORDERED: MORPHINE 2 MG/1 ML INJ IV PRN (14:36)
--- NOTE | 2021-12-01 14:41 | Procedure Note ---
Date of procedure: 12/01/21 Pre-op diagnosis: Displaced left femoral neck fracture Post-op diagnosis: same Procedure: Left bipolar Hemiarthroplasty Procedure The patient was brought to the OR and placed on the OR table in supine position following induction and intubation by anesthesia the patient was placed in the right lateral decubitus position The left hip was then prepped and draped in the usual sterile manner a timeout procedure was done to identify the patient and the correct operative site. Next a lateral incision was made along the proximal femur was taken down sharply through skin and subcutaneous the fascia kamar was seen and incised. A Charnley retractor was placed deep within the wound next the anterior capsule was entered the femoral neck fracture was seen the remaining portion of the femoral neck was then osteotomized in line with a stem template The femoral head was retrieved using a corkscrew device measuring the size of the femoral head and a 51 mm diameter was chosen, followed by reaming and broaching to a #10 stem utilizing a neutral neck and a 32 mm head and the construct was then reduced the hip was taken through a range of motion and was found to be stable. All components were removed. Final components were assembled and inserted the hip was then reduced and taken through a range of motion and again it was found to be stable next the wound was copiously irrigated a cocktail mixture of Toradol and morphine. Again and saline was injected into the surrounding soft tissue for postop pain management following this the wound was closed in a standard routine fashion. Dressings were applied the patient tolerated the procedure there were no complications and he was sent to post anesthesia recovery Anesthesia: GETA Surgeon: RONALD DUGAN (Rk Amanda, 1st assist) Estimated blood loss: other (250 cc) Pathology: list (Portions of the left femoral head and neck sent to pathology) Specimen disposition: to lab Condition: stable Disposition: PACU
[2021-12-01] MEDS ORDERED: BUPIVACAINE-EPINEPHRINE/PF 0.5%-1:200,000 (30 ML) VIAL INFILTRATI ONE (15:22)
[2021-12-01] MEDS ORDERED: KETOROLAC 30 MG/1 ML INJ IV ONE (15:23)
[2021-12-01] MEDS ORDERED: methylPREDNISolone ACETATE 40 MG/1 ML INJ INTRA-ARTI ONE (15:23)
[2021-12-01] MEDS ORDERED: MORPHINE 10 MG/1 ML INJ IM ONE (15:24)
[2021-12-01] MEDS ORDERED: SODIUM CHLORIDE 0.9% 250 ML IVPB IV ONE (15:24)
[2021-12-01] MEDS ORDERED: SODIUM CHLORIDE 0.9% IRRIG SOLN 2000 ML IR ONE (15:25)
--- NOTE | 2021-12-01 16:24 | Progress Note ---
Assessment and Plan 81 y/o male with a history of dementia presented with c/o left hip pain after having a fall recently. patient unable to give exact details...xrays taken in ED reveal left femoral neck fracture. Orthopedic consulted and patient admitted fo r further evaluation and management. 11/29: X-ray: showed left femoral neck fracture. Orthopedics consulted, pending evaluation. Continue supportive care and pain management, IV fluid hydration. Possible surgery tomorrow morning, n.p.o. after midnight 11/30: Plan for left hip surgery today. N.p.o. now, continue IV fluid. Continue pain management and supportive care. Patient appears agitated, ordered for restraint. 12/01: Left hip surgery was postponed to today. Continue restraint as patient being agitated and unable to follow commands. Continue IV fluid hydration. Follow clinically. Assessment and plan: -- Closed left hip fracture X-ray left hip, CT cervical spine, pain control, n.p.o. after midnight, orthopedic surgery team consulted. Patient pending surgical intervention. -- Vascular dementia with behavioral disturbance verbal prompting, verbal redirection, benzodiazepine therapy as clinically indicated. -- Cerebral atherosclerosis Risk factor reduction, antiplatelet therapy as clinically indicated. -- Hypertension Monitor blood pressure every shift, continue medical management. -- Diabetes type II Consistent carbohydrate diet, Accu-Chek, insulin protocol, hypoglycemia protocol -- Hyperlipidemia Low-cholesterol diet, supportive care. -- Obesity (BMI 30.0-34.9) Balanced diet, increase physical activity discharge. -- Metabolic syndrome Blood pressure control, weight reduction, diabetes control, risk factor reduction. -- DVT prophylaxis SCD to bilateral lower extremities while in bed -- Full CODE STATUS Subjective Date of service: 12/01/21 Interval history: Patient seen and examined. Medical records and medication list reviewed. No acute event overnight noted by the RN. Patient denies any chest pain or difficulty breathing. Patient remains on restraint N.p.o. now, plan for left hip surgery postponed to today Discussed plan of care at bedside with patient's RN. Objective - Exam Narrative Exam: GENERAL: well-developed and obese -[place]incentian elderly male lying on bed appeared to be in no discomfort. HEENT: Normocephalic. Atraumatic. No conjunctival congestion or icterus. Patient has moist mucous membranes. NECK: Supple. Trachea midline. CHEST/LUNGS: Clear to auscultated bilaterally, breathing nonlabored. No wheezes crackles or rhonchi. HEART/CARDIOVASCULAR: Regular in rate and rhythm. S1 and S2 positive. ABDOMEN: Abdomen is soft, nontender. Patient has normal bowel sounds. SKIN: There is no rash. Warm and dry. NEURO: No focal motor deficit. Follows command. MUSCULOSKELETAL: Left leg externally rotated and bended. Unable to move left leg EXTRIMITY: No edema, no cyanosis or clubbing. PSYCH: confused. - Constitutional Vitals: Vital Signs - 12hr 12/01/21 12/01/21 12/01/21 06:00 08:00 11:00 Temperature 98.4 F Pulse Rate 88 88 Respiratory 20 14 Rate Blood Pressure 154/90 153/92 O2 Sat by Pulse 95 98 99 Oximetry 12/01/21 12/01/21 12/01/21 11:54 15:15 15:20 Temperature 99.2 F 97.7 F Pulse Rate 88 120 H 115 H Respiratory 14 17 20 Rate Blood Pressure 153/92 140/90 146/104 O2 Sat by Pulse 99 97 99 Oximetry 12/01/21 12/01/21 12/01/21 15:25 15:30 15:45 Temperature Pulse Rate 115 H 111 H 111 H Respiratory 20 18 16 Rate Blood Pressure 156/96 146/91 132/89 O2 Sat by Pulse 99 99 97 Oximetry 12/01/21 16:00 Temperature 98.9 F Pulse Rate 109 H Respiratory 20 Rate Blood Pressure 142/82 O2 Sat by Pulse 97 Oximetry - Labs CBC & Chem 7: 12/02/21 05:21 12/04/21 04:45 Labs: Abnormal lab results 12/01/21 12/01/21 Range/Units 06:00 06:00 Hct 47.3 H (35.5-45.6) % MCV 98 H (84-94) fl Plt Count 122 L (140-440) K/mm3 [place] % (Auto) 9.5 H (0.0-7.3) % [place] # (Auto) 0.9 H (0.0-0.8) K/mm3 Seg Neutrophils % 73.7 H (40.0-70.0) % Sodium 150 H (137-145) mmol/L Chloride 113.0 H (98-107) mmol/L HEART Score - HEART Score Troponin: Troponin T < 0.010 ng/mL (0.00-0.029) 11/28/21 17:14
--- NOTE | 2021-12-01 17:09 | Post Anesthesia Evaluation ---
- Post Anesthesia Evaluation Patient Participated: No Airway Patent: Yes Stable Respiratory Function: Yes Nausea/Vomiting: No Temp > 96.8F: Yes Pain Manageable: Yes Adequeate Hydration: Yes Anesthesia Complications: No
[2021-12-01] MEDS: MEMANTINE 5 MG TAB PO SCH (22:19)
[2021-12-01] MEDS: ceFAZolin/NS 1 GM/50 ML 1 GM/50 ML BAG IV SCH (22:19)
[2021-12-02 05:47] LABS: Hematocrit 41.6 % (35.5-45.6); Hemoglobin 13.5 gm/dl (11.8-15.2)
[2021-12-02 06:06] LABS: BUN/Creatinine Ratio 21; Blood Urea Nitrogen 27 mg/dL (9-20); Calcium 8.7 mg/dL (8.4-10.2); Hemolysis Index 6
[2021-12-02] MEDS: ceFAZolin/NS 1 GM/50 ML 1 GM/50 ML BAG IV SCH (06:23)
[2021-12-02] MEDS: INSULIN REGULAR, HUMAN 100 UNITS/1 ML SUB-Q SCH ×4 (07:30→21:07)
[2021-12-02] MEDS: MEMANTINE 5 MG TAB PO SCH ×2 (09:33→21:02)
[2021-12-02] MEDS: ENOXAPARIN 40 MG/0.4 ML INJ SUB-Q SCH (09:33)
[2021-12-02] MEDS: amLODIPine 10 MG TAB PO SCH (09:33)
[2021-12-02] MEDS: METOPROLOL TARTRATE 25 MG TAB PO SCH ×2 (10:00→21:02)
--- NOTE | 2021-12-02 11:35 | Post Anesthesia Evaluation ---
- Post Anesthesia Evaluation Patient Participated: No (dementia) Airway Patent: Yes Stable Respiratory Function: Yes Temp > 96.8F: Yes Pain Manageable: Yes (unable to verbalize to questions, appears to be comfortable) Anesthesia Complications: No Block Receding Appropriately: Not Applicable Patient on Ventilator: No
--- NOTE | 2021-12-02 13:14 | Progress Note ---
Assessment and Plan s/p bipolar hip replacement continue PT and observation.... Subjective Date of service: 12/02/21 Interval history: resting comfortably in bed, confused... Objective Vital signs: Vital Signs - 12hr 12/02/21 12/02/21 12/02/21 05:19 08:00 10:00 Temperature 97.3 F L Pulse Rate 102 H Respiratory 20 Rate Blood Pressure 128/64 O2 Sat by Pulse 96 94 93 Oximetry Incision: clean and dry Weight bearing status: as tolerated - Labs CBC & BMP: 12/02/21 05:21 12/02/21 05:21 Labs: Abnormal lab results 12/01/21 12/01/21 12/02/21 Range/Units 16:56 22:07 05:21 Sodium 148 H (137-145) mmol/L Chloride 112.1 H (98-107) mmol/L Carbon Dioxide 18 L (22-30) mmol/L BUN 27 H (9-20) mg/dL Glucose 152 H (75-100) mg/dL POC Glucose 143 H 134 H (70-105) mg/dL 12/02/21 Range/Units 07:07 Sodium (137-145) mmol/L Chloride (98-107) mmol/L Carbon Dioxide (22-30) mmol/L BUN (9-20) mg/dL Glucose (75-100) mg/dL POC Glucose 133 H (70-105) mg/dL
--- NOTE | 2021-12-02 14:27 | XRay Report ---
LEFT HIP 1 VIEW(S) INDICATION / CLINICAL INFORMATION: post op evaluation, s/p Lt bipolar hip replacement COMPARISON: None available. FINDINGS: Hip arthroplasty has been placed with satisfactory postoperative radiographic appearance. Signer Name: Surya Duarte MD Signed: 12/02/2021 2:22 PM Workstation Name: [id number]
[2021-12-02] MEDS: QUEtiapine 25 MG TAB PO SCH (21:02)
[2021-12-03 06:13] LABS: Calcium 8.9 mg/dL (8.4-10.2)
[2021-12-03] MEDS: INSULIN REGULAR, HUMAN 100 UNITS/1 ML SUB-Q SCH ×4 (07:30→22:15)
[2021-12-03] MEDS: amLODIPine 10 MG TAB PO SCH (10:41)
[2021-12-03] MEDS: QUEtiapine 25 MG TAB PO SCH ×2 (10:41→22:14)
[2021-12-03] MEDS: METOPROLOL TARTRATE 25 MG TAB PO SCH ×2 (10:41→22:23)
[2021-12-03] MEDS: ENOXAPARIN 40 MG/0.4 ML INJ SUB-Q SCH (10:41)
[2021-12-03] MEDS: MEMANTINE 5 MG TAB PO SCH ×2 (10:41→22:14)
--- NOTE | 2021-12-03 11:38 | Progress Note ---
Assessment and Plan 81 y/o male with a history of dementia presented with c/o left hip pain after having a fall recently. patient unable to give exact details...xrays taken in ED reveal left femoral neck fracture. Orthopedic consulted and patient admitted fo r further evaluation and management. 11/29: X-ray: showed left femoral neck fracture. Orthopedics consulted, pending evaluation. Continue supportive care and pain management, IV fluid hydration. Possible surgery tomorrow morning, n.p.o. after midnight 11/30: Plan for left hip surgery today. N.p.o. now, continue IV fluid. Continue pain management and supportive care. Patient appears agitated, ordered for restraint. 12/01: Left hip surgery was postponed to today. Continue restraint as patient being agitated and unable to follow commands. Continue IV fluid hydration. Follow clinically. 12/02: S/p left hip hemiarthroplasty yesterday. Continue pain management, requiring restraint. Pending PT OT eval. Assessment and plan: -- Closed left hip fracture X-ray left hip, CT cervical spine, pain control, orthopedic surgery team consulted. S/p left hip hemiarthroplasty on 12/01 PT OT consulted -- Vascular dementia with behavioral disturbance verbal prompting, verbal redirection, benzodiazepine therapy as clinically indicated. -- Cerebral atherosclerosis Risk factor reduction, antiplatelet therapy as clinically indicated. -- Hypertension Monitor blood pressure every shift, continue medical management. -- Diabetes type II Consistent carbohydrate diet, Accu-Chek, insulin protocol, hypoglycemia protocol -- Hyperlipidemia Low-cholesterol diet, supportive care. -- Obesity (BMI 30.0-34.9) Balanced diet, increase physical activity discharge. -- Metabolic syndrome Blood pressure control, weight reduction, diabetes control, risk factor reduction. -- DVT prophylaxis SCD to bilateral lower extremities while in bed -- Full CODE STATUS Subjective Date of service: 12/02/21 Interval history: Patient seen and examined. Medical records and medication list reviewed. No acute event overnight noted by the RN. Remains on restraint, status post hip surgery yesterday Tolerated well, tolerating diet Discussed plan of care at bedside with patient's RN. Objective - Exam Narrative Exam: GENERAL: well-developed and obese -French elderly male lying on bed appeared to be in no discomfort. HEENT: Normocephalic. Atraumatic. No conjunctival congestion or icterus. Patient has moist mucous membranes. NECK: Supple. Trachea midline. CHEST/LUNGS: Clear to auscultated bilaterally, breathing nonlabored. No wheezes crackles or rhonchi. HEART/CARDIOVASCULAR: Regular in rate and rhythm. S1 and S2 positive. ABDOMEN: Abdomen is soft, nontender. Patient has normal bowel sounds. SKIN: There is no rash. Warm and dry. NEURO: No focal motor deficit. Follows command. MUSCULOSKELETAL: No joint swelling, left hip on dressing EXTRIMITY: No edema, no cyanosis or clubbing. PSYCH: confused. - Constitutional Vitals: Vital Signs - 12hr 12/03/21 12/03/21 12/03/21 01:58 05:26 08:32 Temperature 99.2 F 98.2 F Pulse Rate 89 Respiratory 18 20 Rate Blood Pressure 122/68 O2 Sat by Pulse 93 93 Oximetry 12/03/21 10:41 Temperature Pulse Rate 102 H Respiratory Rate Blood Pressure 124/78 O2 Sat by Pulse Oximetry - Labs CBC & Chem 7: 12/02/21 05:21 12/04/21 04:45 Labs: Abnormal lab results 12/02/21 12/02/21 12/02/21 Range/Units 11:06 16:38 20:21 Sodium (137-145) mmol/L Chloride (98-107) mmol/L Carbon Dioxide (22-30) mmol/L BUN (9-20) mg/dL Creatinine (0.8-1.3) mg/dL Glucose (75-100) mg/dL POC Glucose 132 H 119 H 116 H (70-105) mg/dL 12/03/21 Range/Units 04:42 Sodium 154 H (137-145) mmol/L Chloride 114.8 H (98-107) mmol/L Carbon Dioxide 21 L (22-30) mmol/L BUN 36 H (9-20) mg/dL Creatinine 1.5 H (0.8-1.3) mg/dL Glucose 115 H (75-100) mg/dL POC Glucose (70-105) mg/dL HEART Score - HEART Score Troponin: Troponin T < 0.010 ng/mL (0.00-0.029) 11/28/21 17:14
--- NOTE | 2021-12-03 11:39 | Progress Note ---
Assessment and Plan 81 y/o male with a history of dementia presented with c/o left hip pain after having a fall recently. patient unable to give exact details...xrays taken in ED reveal left femoral neck fracture. Orthopedic consulted and patient admitted fo r further evaluation and management. 11/29: X-ray: showed left femoral neck fracture. Orthopedics consulted, pending evaluation. Continue supportive care and pain management, IV fluid hydration. Possible surgery tomorrow morning, n.p.o. after midnight 11/30: Plan for left hip surgery today. N.p.o. now, continue IV fluid. Continue pain management and supportive care. Patient appears agitated, ordered for restraint. 12/01: Left hip surgery was postponed to today. Continue restraint as patient being agitated and unable to follow commands. Continue IV fluid hydration. Follow clinically. 12/02: S/p left hip hemiarthroplasty yesterday. Continue pain management, requiring restraint. Pending PT OT eval. 12/03: Patient appears clinically stable, PT recommended SNF placement. Apply restraint as needed. Pending placement. Assessment and plan: -- Closed left hip fracture X-ray left hip, CT cervical spine, pain control, orthopedic surgery team consulted. S/p left hip hemiarthroplasty on 12/01 PT OT consulted -recommended SNF -- Vascular dementia with behavioral disturbance verbal prompting, verbal redirection, benzodiazepine therapy as clinically indicated. -- Cerebral atherosclerosis Risk factor reduction, antiplatelet therapy as clinically indicated. -- Hypertension Monitor blood pressure every shift, continue medical management. -- Diabetes type II Consistent carbohydrate diet, Accu-Chek, insulin protocol, hypoglycemia protocol -- Hyperlipidemia Low-cholesterol diet, supportive care. -- Obesity (BMI 30.0-34.9) Balanced diet, increase physical activity discharge. -- Metabolic syndrome Blood pressure control, weight reduction, diabetes control, risk factor reduction. -- DVT prophylaxis SCD to bilateral lower extremities while in bed -- Full CODE STATUS Subjective Date of service: 12/03/21 Interval history: Patient seen and examined. Medical records and medication list reviewed. No acute event overnight noted by the RN. Remains on restraint, tolerating diet PT recommended SNF placement Discussed plan of care at bedside with patient's RN. Objective - Exam Narrative Exam: GENERAL: well-developed and obese -[place] elderly male lying on bed appeared to be in no discomfort. HEENT: Normocephalic. Atraumatic. No conjunctival congestion or icterus. Patient has moist mucous membranes. NECK: Supple. Trachea midline. CHEST/LUNGS: Clear to auscultated bilaterally, breathing nonlabored. No wheezes crackles or rhonchi. HEART/CARDIOVASCULAR: Regular in rate and rhythm. S1 and S2 positive. ABDOMEN: Abdomen is soft, nontender. Patient has normal bowel sounds. SKIN: There is no rash. Warm and dry. NEURO: No focal motor deficit. Follows command. MUSCULOSKELETAL: No joint swelling, left hip on dressing EXTRIMITY: No edema, no cyanosis or clubbing. PSYCH: confused. - Constitutional Vitals: Vital Signs - 12hr 12/03/21 12/03/21 12/03/21 01:58 05:26 08:32 Temperature 99.2 F 98.2 F Pulse Rate 89 Respiratory 18 20 Rate Blood Pressure 122/68 O2 Sat by Pulse 93 93 Oximetry 12/03/21 10:41 Temperature Pulse Rate 102 H Respiratory Rate Blood Pressure 124/78 O2 Sat by Pulse Oximetry - Labs CBC & Chem 7: 12/02/21 05:21 12/04/21 04:45 Labs: Abnormal lab results 12/02/21 12/02/21 12/02/21 Range/Units 11:06 16:38 20:21 Sodium (137-145) mmol/L Chloride (98-107) mmol/L Carbon Dioxide (22-30) mmol/L BUN (9-20) mg/dL Creatinine (0.8-1.3) mg/dL Glucose (75-100) mg/dL POC Glucose 132 H 119 H 116 H (70-105) mg/dL 12/03/21 Range/Units 04:42 Sodium 154 H (137-145) mmol/L Chloride 114.8 H (98-107) mmol/L Carbon Dioxide 21 L (22-30) mmol/L BUN 36 H (9-20) mg/dL Creatinine 1.5 H (0.8-1.3) mg/dL Glucose 115 H (75-100) mg/dL POC Glucose (70-105) mg/dL HEART Score - HEART Score Troponin: Troponin T < 0.010 ng/mL (0.00-0.029) 11/28/21 17:14
[2021-12-04 05:32] LABS: BUN/Creatinine Ratio 28; Blood Urea Nitrogen 37 mg/dL (9-20); Calcium 8.8 mg/dL (8.4-10.2); Hemolysis Index 1
[2021-12-04] MEDS: INSULIN REGULAR, HUMAN 100 UNITS/1 ML SUB-Q SCH ×4 (07:30→22:36)
[2021-12-04] MEDS: DEXTROSE 5% IN WATER 1,000 ML IV SCH (10:19)
[2021-12-04] MEDS: amLODIPine 10 MG TAB PO SCH (10:20)
[2021-12-04] MEDS: METOPROLOL TARTRATE 25 MG TAB PO SCH ×2 (10:20→22:36)
[2021-12-04] MEDS: ENOXAPARIN 40 MG/0.4 ML INJ SUB-Q SCH (10:20)
[2021-12-04] MEDS: QUEtiapine 25 MG TAB PO SCH ×2 (10:20→22:02)
[2021-12-04] MEDS: MEMANTINE 5 MG TAB PO SCH ×2 (10:21→22:01)
[2021-12-04] MEDS: DOCUSATE SODIUM 100 MG CAP PO SCH ×2 (12:07→22:01)
--- NOTE | 2021-12-04 12:13 | Progress Note ---
Assessment and Plan 81 y/o male with a history of dementia presented with c/o left hip pain after having a fall recently. patient unable to give exact details...xrays taken in ED reveal left femoral neck fracture. Orthopedic consulted and patient admitted fo r further evaluation and management. 11/29: X-ray: showed left femoral neck fracture. Orthopedics consulted, pending evaluation. Continue supportive care and pain management, IV fluid hydration. Possible surgery tomorrow morning, n.p.o. after midnight 11/30: Plan for left hip surgery today. N.p.o. now, continue IV fluid. Continue pain management and supportive care. Patient appears agitated, ordered for restraint. 12/01: Left hip surgery was postponed to today. Continue restraint as patient being agitated and unable to follow commands. Continue IV fluid hydration. Follow clinically. 12/02: S/p left hip hemiarthroplasty yesterday. Continue pain management, requiring restraint. Pending PT OT eval. 12/03: Patient appears clinically stable, PT recommended SNF placement. Apply restraint as needed. Pending placement. Na level elevated, pt on D5W. follow bmp 12/04: Na level remains elevated, patient tolerating diet, cont PT. pending placement. Assessment and plan: -- Closed left hip fracture X-ray left hip, CT cervical spine, pain control, orthopedic surgery team consulted. S/p left hip hemiarthroplasty on 12/01 PT OT consulted -recommended SNF --Hypernatremia, on D5W, cont to follow BMP -- Vascular dementia with behavioral disturbance verbal prompting, verbal redirection, benzodiazepine therapy as clinically indicated. -- Cerebral atherosclerosis Risk factor reduction, antiplatelet therapy as clinically indicated. -- Hypertension Monitor blood pressure every shift, continue medical management. -- Diabetes type II Consistent carbohydrate diet, Accu-Chek, insulin protocol, hypoglycemia protocol -- Hyperlipidemia Low-cholesterol diet, supportive care. -- Obesity (BMI 30.0-34.9) Balanced diet, increase physical activity discharge. -- Metabolic syndrome Blood pressure control, weight reduction, diabetes control, risk factor reduction. -- DVT prophylaxis SCD to bilateral lower extremities while in bed -- Full CODE STATUS Subjective Date of service: 12/04/21 Interval history: Patient seen and examined. Medical records and medication list reviewed. No acute event overnight noted by the RN. Remains on restraint, tolerating diet PT recommended SNF placement Discussed plan of care at bedside with patient's RN. Objective - Exam Narrative Exam: GENERAL: well-developed and obese -[place] elderly male lying on bed appeared to be in no discomfort. HEENT: Normocephalic. Atraumatic. No conjunctival congestion or icterus. Patient has moist mucous membranes. NECK: Supple. Trachea midline. CHEST/LUNGS: Clear to auscultated bilaterally, breathing nonlabored. No wheezes crackles or rhonchi. HEART/CARDIOVASCULAR: Regular in rate and rhythm. S1 and S2 positive. ABDOMEN: Abdomen is soft, nontender. Patient has normal bowel sounds. SKIN: There is no rash. Warm and dry. NEURO: No focal motor deficit. Follows command. MUSCULOSKELETAL: No joint swelling, left hip on dressing EXTRIMITY: No edema, no cyanosis or clubbing. PSYCH: confused. - Constitutional Vitals: Vital Signs - 12hr 12/04/21 12/04/21 12/04/21 05:05 08:27 10:20 Temperature 98.5 F Pulse Rate 94 H 74 Respiratory 20 Rate Blood Pressure 115/69 133/78 O2 Sat by Pulse 91 98 Oximetry - Labs CBC & Chem 7: 12/02/21 05:21 12/05/21 10:45 Labs: Abnormal lab results 12/03/21 12/03/21 12/03/21 Range/Units 11:53 16:37 22:14 Sodium (137-145) mmol/L Chloride (98-107) mmol/L BUN (9-20) mg/dL Glucose (75-100) mg/dL POC Glucose 138 H 112 H 135 H (70-105) mg/dL 12/04/21 Range/Units 04:45 Sodium 153 H (137-145) mmol/L Chloride 115.0 H (98-107) mmol/L BUN 37 H (9-20) mg/dL Glucose 134 H (75-100) mg/dL POC Glucose (70-105) mg/dL HEART Score - HEART Score Troponin: Troponin T < 0.010 ng/mL (0.00-0.029) 11/28/21 17:14
[2021-12-04] MEDS: POLYETHYLENE GLYCOL 3350 17 GM POWDER PO SCH (14:20)
[2021-12-05] MEDS: DEXTROSE 5% IN WATER 1,000 ML IV SCH (01:19)
[2021-12-05] MEDS: INSULIN REGULAR, HUMAN 100 UNITS/1 ML SUB-Q SCH ×3 (07:30→16:30)
[2021-12-05] MEDS: ENOXAPARIN 40 MG/0.4 ML INJ SUB-Q SCH (09:29)
[2021-12-05] MEDS: amLODIPine 10 MG TAB PO SCH (09:30)
[2021-12-05] MEDS: QUEtiapine 25 MG TAB PO SCH ×2 (09:30→22:09)
[2021-12-05] MEDS: DOCUSATE SODIUM 100 MG CAP PO SCH ×2 (09:30→22:09)
[2021-12-05] MEDS: METOPROLOL TARTRATE 25 MG TAB PO SCH ×2 (09:30→22:30)
[2021-12-05] MEDS: MEMANTINE 5 MG TAB PO SCH ×2 (09:32→22:09)
[2021-12-05] MEDS: POLYETHYLENE GLYCOL 3350 17 GM POWDER PO SCH (09:46)
[2021-12-05 12:14] LABS: BUN/Creatinine Ratio 25; Blood Urea Nitrogen 25 mg/dL (9-20); Calcium 8.5 mg/dL (8.4-10.2); Hemolysis Index 143
--- NOTE | 2021-12-05 14:48 | Progress Note ---
Assessment and Plan 81 y/o male with a history of dementia presented with c/o left hip pain after having a fall recently. patient unable to give exact details...xrays taken in ED reveal left femoral neck fracture. Orthopedic consulted and patient admitted fo r further evaluation and management. 11/29: X-ray: showed left femoral neck fracture. Orthopedics consulted, pending evaluation. Continue supportive care and pain management, IV fluid hydration. Possible surgery tomorrow morning, n.p.o. after midnight 11/30: Plan for left hip surgery today. N.p.o. now, continue IV fluid. Continue pain management and supportive care. Patient appears agitated, ordered for restraint. 12/01: Left hip surgery was postponed to today. Continue restraint as patient being agitated and unable to follow commands. Continue IV fluid hydration. Follow clinically. 12/02: S/p left hip hemiarthroplasty yesterday. Continue pain management, requiring restraint. Pending PT OT eval. 12/03: Patient appears clinically stable, PT recommended SNF placement. Apply restraint as needed. Pending placement. Na level elevated, pt on D5W. follow bmp 12/04: Na level remains elevated, patient tolerating diet, cont PT. pending placement. 12/05> Na level improving, cont d5w, follow BMP. pending placement. no change clinically Assessment and plan: -- Closed left hip fracture X-ray left hip, CT cervical spine, pain control, orthopedic surgery team consulted. S/p left hip hemiarthroplasty on 12/01 PT OT consulted -recommended SNF --Hypernatremia, on D5W, cont to follow BMP -- Vascular dementia with behavioral disturbance verbal prompting, verbal redirection, benzodiazepine therapy as clinically indicated. -- Cerebral atherosclerosis Risk factor reduction, antiplatelet therapy as clinically indicated. -- Hypertension Monitor blood pressure every shift, continue medical management. -- Diabetes type II Consistent carbohydrate diet, Accu-Chek, insulin protocol, hypoglycemia protocol -- Hyperlipidemia Low-cholesterol diet, supportive care. -- Obesity (BMI 30.0-34.9) Balanced diet, increase physical activity discharge. -- Metabolic syndrome Blood pressure control, weight reduction, diabetes control, risk factor reduction. -- DVT prophylaxis SCD to bilateral lower extremities while in bed -- Full CODE STATUS Subjective Date of service: 12/05/21 Interval history: Patient seen and examined. Medical records and medication list reviewed. No acute event overnight noted by the RN. Remains on restraint, tolerating diet PT recommended SNF placement Discussed plan of care at bedside with patient's RN. Objective - Exam Narrative Exam: GENERAL: well-developed and obese -Polish elderly male lying on bed appeared to be in no discomfort. HEENT: Normocephalic. Atraumatic. No conjunctival congestion or icterus. Patient has moist mucous membranes. NECK: Supple. Trachea midline. CHEST/LUNGS: Clear to auscultated bilaterally, breathing nonlabored. No wheezes crackles or rhonchi. HEART/CARDIOVASCULAR: Regular in rate and rhythm. S1 and S2 positive. ABDOMEN: Abdomen is soft, nontender. Patient has normal bowel sounds. SKIN: There is no rash. Warm and dry. NEURO: No focal motor deficit. Follows command. MUSCULOSKELETAL: No joint swelling, left hip on dressing EXTRIMITY: No edema, no cyanosis or clubbing. PSYCH: confused. - Constitutional Vitals: Vital Signs - 12hr 12/05/21 12/05/21 12/05/21 04:59 05:40 08:58 Temperature 98.6 F Pulse Rate 82 Respiratory 20 Rate Blood Pressure 120/90 O2 Sat by Pulse 95 100 Oximetry 12/05/21 10:00 Temperature Pulse Rate Respiratory Rate Blood Pressure O2 Sat by Pulse 96 Oximetry - Labs CBC & Chem 7: 12/02/21 05:21 12/05/21 10:45 Labs: Abnormal lab results 12/05/21 12/05/21 Range/Units 07:35 10:45 Sodium 147 H (137-145) mmol/L Chloride 113.0 H (98-107) mmol/L Carbon Dioxide 20 L (22-30) mmol/L BUN 25 H (9-20) mg/dL Glucose 124 H (75-100) mg/dL POC Glucose 124 H (70-105) mg/dL HEART Score - HEART Score Troponin: Troponin T < 0.010 ng/mL (0.00-0.029) 11/28/21 17:14
[2021-12-06] MEDS: INSULIN REGULAR, HUMAN 100 UNITS/1 ML SUB-Q SCH ×5 (01:44→23:23)
[2021-12-06] MEDS: DEXTROSE 5% IN WATER 1,000 ML IV SCH (03:53)
[2021-12-06 08:51] LABS: BUN/Creatinine Ratio 26; Blood Urea Nitrogen 23 mg/dL (9-20); Calcium 8.7 mg/dL (8.4-10.2); Hemolysis Index 3
[2021-12-06] MEDS: POLYETHYLENE GLYCOL 3350 17 GM POWDER PO SCH (09:20)
[2021-12-06] MEDS: DOCUSATE SODIUM 100 MG CAP PO SCH ×2 (09:20→21:42)
[2021-12-06] MEDS: METOPROLOL TARTRATE 25 MG TAB PO SCH ×2 (09:20→21:42)
[2021-12-06] MEDS: ENOXAPARIN 40 MG/0.4 ML INJ SUB-Q SCH (09:21)
[2021-12-06] MEDS: QUEtiapine 25 MG TAB PO SCH ×2 (09:21→21:42)
[2021-12-06] MEDS: amLODIPine 10 MG TAB PO SCH (09:21)
[2021-12-06] MEDS: MEMANTINE 5 MG TAB PO SCH ×2 (10:00→21:42)
--- NOTE | 2021-12-06 20:50 | Progress Note ---
Assessment and Plan - Patient Problems (1) Closed left hip fracture Current Visit: Yes Status: Acute Qualifiers: Encounter type: initial encounter Qualified Code(s): S72.002A - Fracture of unspecified part of neck of left femur, initial encounter for closed fracture Plan to address problem: pain control, n.p.o. after midnight, orthopedic surgery team consulted. Physical therapy consulted. Patient pending placement.. (2) Vascular dementia with behavioral disturbance Current Visit: Yes Status: Acute Plan to address problem: verbal prompting, verbal redirection, benzodiazepine therapy as clinically indicated. (3) Cerebral atherosclerosis Current Visit: Yes Status: Acute Plan to address problem: Risk factor reduction, antiplatelet therapy as clinically indicated. (4) Hypertension Current Visit: Yes Status: Acute Qualifiers: Hypertension type: primary hypertension Qualified Code(s): I10 - Essential (primary) hypertension Plan to address problem: Monitor blood pressure every shift, continue medical management. (5) Diabetes Current Visit: Yes Status: Acute Plan to address problem: Consistent carbohydrate diet, Accu-Chek, insulin protocol, hypoglycemia protocol (6) Hyperlipidemia Current Visit: Yes Status: Acute Qualifiers: Hyperlipidemia type: mixed hyperlipidemia Qualified Code(s): E78.2 - Mixed hyperlipidemia Plan to address problem: Low-cholesterol diet, supportive care. (7) Obesity (BMI 30.0-34.9) Current Visit: Yes Status: Acute Plan to address problem: Balanced diet, increase physical activity discharge. (8) Metabolic syndrome Current Visit: Yes Status: Acute Plan to address problem: Blood pressure control, weight reduction, diabetes control, risk factor reduction. (9) DVT prophylaxis Current Visit: Yes Status: Acute Plan to address problem: SCD to bilateral lower extremities while in bed (10) Advance care planning Current Visit: Yes Status: Acute Plan to address problem: Disease education conducted, care plan discussed, diagnoses discussed, prognosis discussed, patient is full code, +30 minutes. (11) Preventative health care Current Visit: Yes Status: Acute Plan to address problem: Patient family counseled regarding home safety precautions, fall risk protocol, outpatient follow-up with primary care physician for all age and risk factor appropriate screening test. +30 minutes. History Interval history: 81 YO HD #9 with left femoral neck fracture, Debility, pending placement. Orthopedic surgery service consulted. No reported nursing events. Patient remains at baseline level of cognition and function. Patient medically op timized. Hospitalist Physical - Constitutional Vitals: Temp Pulse Resp BP Pulse Ox 98.9 F 71 22 142/79 97 12/06/21 06:12 12/06/21 06:12 12/06/21 06:12 12/06/21 06:12 12/06/21 20:29 General appearance: Present: mild distress, obese - EENT Eyes: Present: PERRL ENT: hearing decreased - Neck Neck: Present: supple - Respiratory Respiratory effort: normal Respiratory: bilateral: diminished - Cardiovascular Rhythm: regular Heart Sounds: Present: S1 & S2 - Extremities Extremities: no ischemia Peripheral Pulses: within normal limits - Abdominal General gastrointestinal: soft, non-tender, non-distended - Integumentary Integumentary: Present: clear, dry - Psychiatric Psychiatric: cooperative - Neurologic Neurologic: CNII-XII intact HEART Score - HEART Score Troponin: Troponin T < 0.010 ng/mL (0.00-0.029) 11/28/21 17:14 Results - Labs CBC & Chem 7: 12/02/21 05:21 12/06/21 07:23 Labs: Laboratory Last Values WBC 9.2 K/mm3 (4.5-11.0) 12/01/21 06:00 RBC 4.84 M/mm3 (3.65-5.03) 12/01/21 06:00 Hgb 13.5 gm/dl (11.8-15.2) 12/02/21 05:21 Hct 41.6 % (35.5-45.6) 12/02/21 05:21 MCV 98 fl (84-94) H 12/01/21 06:00 MCH 31 pg (28-32) 12/01/21 06:00 MCHC 32 % (32-34) 12/01/21 06:00 RDW 14.9 % (13.2-15.2) 12/01/21 06:00 Plt Count 122 K/mm3 (140-440) L 12/01/21 06:00 Lymph % (Auto) 14.3 % (13.4-35.0) 12/01/21 06:00 [place] % (Auto) 9.5 % (0.0-7.3) H 12/01/21 06:00 Eos % (Auto) 1.9 % (0.0-4.3) 12/01/21 06:00 Baso % (Auto) 0.6 % (0.0-1.8) 12/01/21 06:00 Lymph # (Auto) 1.3 K/mm3 (1.2-5.4) 12/01/21 06:00 [place] # (Auto) 0.9 K/mm3 (0.0-0.8) H 12/01/21 06:00 Eos # (Auto) 0.2 K/mm3 (0.0-0.4) 12/01/21 06:00 Baso # (Auto) 0.1 K/mm3 (0.0-0.1) 12/01/21 06:00 Seg Neutrophils % 73.7 % (40.0-70.0) H 12/01/21 06:00 Seg Neutrophils # 6.8 K/mm3 (1.8-7.7) 12/01/21 06:00 Sodium 149 mmol/L (137-145) H 12/06/21 07:23 Potassium 3.7 mmol/L (3.6-5.0) D 12/06/21 07:23 Chloride 113.4 mmol/L (98-107) H 12/06/21 07:23 Carbon Dioxide 24 mmol/L (22-30) 12/06/21 07:23 Anion Gap 15 mmol/L 12/06/21 07:23 BUN 23 mg/dL (9-20) H 12/06/21 07:23 Creatinine 0.9 mg/dL (0.8-1.3) 12/06/21 07:23 Estimated GFR > 60 ml/min 12/06/21 07:23 BUN/Creatinine Ratio 26 % 12/06/21 07:23 Glucose 122 mg/dL (75-100) H 12/06/21 07:23 POC Glucose 120 mg/dL (70-105) H 12/06/21 16:01 Calcium 8.7 mg/dL (8.4-10.2) 12/06/21 07:23 Total Bilirubin 0.90 mg/dL (0.1-1.2) 11/28/21 17:14 AST 22 units/L (5-40) 11/28/21 17:14 ALT 14 units/L (7-56) 11/28/21 17:14 Alkaline Phosphatase 83 units/L (35-129) 11/28/21 17:14 Total Creatine Kinase 621 units/L (55-170) H 11/28/21 17:14 CK-MB (CK-2) 1.9 ng/mL (0.0-4.0) 11/28/21 17:14 CK-MB (CK-2) Rel Index 0.3 (0-4) 11/28/21 17:14 Troponin T < 0.010 ng/mL (0.00-0.029) 11/28/21 17:14 Total Protein 6.9 g/dL (6.3-8.2) 11/28/21 17:14 Albumin 4.0 g/dL (3.9-5) 11/28/21 17:14 Albumin/Globulin Ratio 1.4 % 11/28/21 17:14 Urine Color Yellow (Yellow) 11/28/21 16:59 Urine Turbidity Clear (Clear) 11/28/21 16:59 Specific [place] (Man) 1.010 (1.003-1.030) 11/28/21 16:59 Ur Protein (Man) Negative mg/dL (Negative) 11/28/21 16:59 Ur Ketones (Man) Negative (Negative) 11/28/21 16:59 Ur Nitrite (Man) Negative (Negative) 11/28/21 16:59 Ur Reducing Substances Not Reportable 11/28/21 16:59 Urine Bilirubin (Man) Negative (Negative) 11/28/21 16:59 Urine Ictotest Not Reportable 11/28/21 16:59 Leukocyte Esterase (Man) Negative (Negative) 11/28/21 16:59 Urine WBC (Auto) 1.0 /HPF (0.0-6.0) 11/28/21 16:59 Urine RBC (Auto) 4.0 /HPF (0.0-6.0) 11/28/21 16:59 U Epithel Cells (Auto) 2.0 /HPF (0-13.0) 11/28/21 16:59 Urine RBC (Manual) Negative (Negative) 11/28/21 16:59 Urine Mucus Few /HPF 11/28/21 16:59 Blood Type O POSITIVE 12/01/21 06:05 Antibody Screen Negative 12/01/21 06:05 Gandhi/IV: Voiding Method Incontinent Active Medications - Current Medications Current Medications: Generic Name Dose Route Start Last Admin Trade Name Freq PRN Reason Stop Dose Admin Acetaminophen 650 mg 11/28/21 20:27 Acetaminophen 325 Mg Tab PO Q4H PRN Pain MILD(1-3)/Fever >100.5/GASTON Albuterol 2.5 mg 11/28/21 20:27 Albuterol 2.5 Mg/3 Ml Nebu IH Q4HRT PRN Shortness Of Breath Amlodipine Besylate 10 mg 12/02/21 10:00 12/06/21 09:21 Amlodipine 10 Mg Tab PO 10 mg DAILY FLORINDA Administration Dextrose 50 ml 11/28/21 20:28 Dextrose 50% In Water (25gm) 50 Ml Syringe IV Q30MIN PRN Hypoglycemia Protocol Docusate Sodium 100 mg 12/04/21 12:00 12/06/21 09:20 Docusate Sodium 100 Mg Cap PO 100 mg BID FLORINDA Administration Enoxaparin Sodium 40 mg 12/02/21 10:00 12/06/21 09:21 Enoxaparin 40 Mg/0.4 Ml Inj SUB-Q 40 mg QDAY FLORINDA Administration Dextrose 1,000 mls @ 75 mls/hr 12/03/21 12:00 12/06/21 03:53 D5w IV 75 mls/hr DIRECT FLORINDA Administration Insulin Human Regular 0 units 11/28/21 22:00 12/06/21 16:30 Insulin Regular, Human 100 Units/1 Ml SUB-Q Not Given ACHS FLORINDA Protocol Memantine 5 mg 12/01/21 22:00 12/06/21 10:00 Memantine 5 Mg Tab PO 5 mg BID FLORINDA Administration Metoprolol Tartrate 12.5 mg 12/02/21 10:00 12/06/21 09:20 Metoprolol Tartrate 25 Mg Tab PO 12.5 mg BID FLORINDA Administration Morphine Sulfate 2 mg 12/01/21 14:36 Morphine 2 Mg/1 Ml Inj IV Q4H PRN Pain, Moderate (4-6) Morphine Sulfate 4 mg 12/01/21 14:36 12/05/21 05:14 Morphine 4 Mg/1 Ml Inj IV 4 mg Q4H PRN Administration Pain , Severe (7-10) Ondansetron HCl 4 mg 11/28/21 20:27 Ondansetron 4 Mg/2 Ml Inj IV Q8H PRN Nausea And Vomiting Oxycodone/Acetaminophen 1 tab 11/28/21 20:27 11/30/21 00:32 Oxycodone /Acetaminophen 5-325mg Tab PO 1 tab Q6H PRN Administration Pain, Moderate (4-6) Polyethylene Glycol 17 gm 12/04/21 14:00 12/06/21 09:20 Polyethylene Glycol 3350 17 Gm Powder PO 17 gm QDAY FLORINDA Administration Quetiapine Fumarate 25 mg 12/02/21 22:00 12/06/21 09:21 Quetiapine 25 Mg Tab PO 25 mg BID FLORINDA Administration Sodium Chloride 10 ml 11/28/21 22:00 12/06/21 09:21 Sodium Chloride 0.9% 10 Ml Flush Syringe IV 10 ml BID FLORINDA Administration Sodium Chloride 10 ml 11/28/21 20:27 12/01/21 00:25 Sodium Chloride 0.9% 10 Ml Flush Syringe IV 10 ml PRN PRN Administration LINE FLUSH Nutrition/Malnutrition Assess - Dietary Evaluation Nutrition/Malnutrition Findings: Nutrition Notes Start: 11/29/21 17:47 Freq: Status: Active Protocol: Document 12/06/21 09:18 DANIA (Rec: 12/06/21 09:52 DANIA [email or web address]) Nutrition Notes Initial or Follow up Brief Note Current Diagnosis Diabetes,Hypertension, Hyperlipidemia Other Pertinent Diagnosis s/p L-Hip Hemiarthroplasty, Hypernatremia, Dementia w/ Behavioral Disturbanc Current Diet Pureed Diet (since L 12/03). Labs/Tests 12/06: Na 149, Cl 113.4, BUN 23, Glu 122. Pertinent Medications 12/06: D5w @ 75ml/hr, others nutritionally unremakable. Height 6 ft 2 in Weight 117.3 kg [place] Body Weight (kg) 86.36 BMI 33.2 Weight change and time frame No body weight change reported in 1 week. Weight Status Obese Subjective/Other Information RD consult for routine F/U on dietary advancement. Per MD, diet change to Pureed, Pt's PO intake of meals has been Fair (>50%) and faily tolerated, according to ADL notes. I will resume dietary supplementation to compensate for poor or insufficient PO intake of meals during LOS. Pt is on Room Air, O2 saturation @ 96%, according to Physical Assessment History notes. Pt remains incontinent, according to Physical Assessment History notes. Pt shows a surgical wound on L -Hip as sign of concern for skin risk at the time, according to Physical Assessment History notes. Pt is pending placement to SNF , according to Progress notes. Percent of energy/protein needs met: Prescribed Pureed Diet provides for energy/protein needs (1,804 Kcal/77 g) during LOS; additionally, Dietary Supplements will compensate for possible poor or insufficient PO intake of meals with 660 Kcal and 30 g of protein. Skin Integrity/Comment L-Hip surgical wound. Current % PO Fair (50-74%) #1 Nutrition Diagnosis Inadequate oral intake Comments: Pureed, Pt's PO intake of meals has been Fair (>50%) and faily tolerated, according to ADL notes. Diagnosis Progress(for reassessment Continues documentation) Is patient on ventilator? No Is Patient Ambulatory and/or Out of Bed No REE-(Hodge-St. Jeor-confined to bed) [phone] [facility]culation [facility] Additional Notes Protein: 1.2-1.5 g/Kg AdjBW; 122-153 g/day. Fluids: 1 ml/Kcal, or as per MD. Nutrition Intervention Change Diet Order: Continue Pureed Diet as tolerated. Add Supplement/Snack (indicate name/kcal Resume 8 fl oz Glucerna; TID. /protein ) Provides kCal: 660 Provides Protein (gm) 30 Goal #1 Compensate, through dietary supplementation, for possible poor or insufficient PO intake of meals during LOS. Follow-Up By: 12/13/21 Additional Comments Continue monitoring food tolerance, %PO intake of meals , dietary supplements, and BM.
[2021-12-07] MEDS: DEXTROSE 5% IN WATER 1,000 ML IV SCH (00:48)
[2021-12-07] MEDS: INSULIN REGULAR, HUMAN 100 UNITS/1 ML SUB-Q SCH ×3 (08:09→16:30)
[2021-12-07] MEDS: amLODIPine 10 MG TAB PO SCH (09:37)
[2021-12-07] MEDS: POLYETHYLENE GLYCOL 3350 17 GM POWDER PO SCH (09:37)
[2021-12-07] MEDS: MEMANTINE 5 MG TAB PO SCH (09:37)
[2021-12-07] MEDS: QUEtiapine 25 MG TAB PO SCH (09:38)
[2021-12-07] MEDS: DOCUSATE SODIUM 100 MG CAP PO SCH (09:38)
[2021-12-07] MEDS: ENOXAPARIN 40 MG/0.4 ML INJ SUB-Q SCH (09:38)
[2021-12-07] MEDS: METOPROLOL TARTRATE 25 MG TAB PO SCH (11:12)
--- NOTE | 2021-12-07 13:06 | Discharge Summary ---
Providers - Providers Date of Admission: 11/28/21 20:27 Attending physician: ISAURA GOMEZ 11/28/21 18:05 Consult to Physician [CONS] Urgent Comment: Consulting Provider: RONALD DUGAN Physician Instructions: Reason For Exam: impacted left femoral neck fracture 12/01/21 14:37 Consult to Case Management [CONS] Routine Services Needed at Discharge: Other Notified:: Yes Additional Physician Instructions: Assess Discharge needs. Physical Therapy Evaluation and Treat [CONS] Routine Comment: Reason For Exam: PT/OT Eval and Treat 12/02/21 14:10 Occupational Therapy Evaluate and Treat [CONS] Stat Comment: Eval and Treat Reason For Exam: Occupational Therapy Primary care physician: YVONNE ARVIZU Hospitalization Condition: Stable Disposition: 30 STILL A PATIENT - Discharge Diagnoses (1) Closed left hip fracture Status: Acute Qualifiers: Encounter type: initial encounter Qualified Code(s): S72.002A - Fracture of unspecified part of neck of left femur, initial encounter for closed fracture (2) Vascular dementia with behavioral disturbance Status: Acute (3) Cerebral atherosclerosis Status: Acute (4) Hypertension Status: Acute Qualifiers: Hypertension type: primary hypertension Qualified Code(s): I10 - Essential (primary) hypertension (5) Diabetes Status: Acute (6) Hyperlipidemia Status: Acute Qualifiers: Hyperlipidemia type: mixed hyperlipidemia Qualified Code(s): E78.2 - Mixed hyperlipidemia (7) Obesity (BMI 30.0-34.9) Status: Acute (8) Metabolic syndrome Status: Acute (9) DVT prophylaxis Status: Acute (10) Advance care planning Status: Acute (11) Preventative health care Status: Acute Exam - Constitutional Vitals: Temp Pulse Resp BP Pulse Ox 98.3 F 83 20 134/80 98 12/07/21 05:52 12/07/21 09:37 12/07/21 05:52 12/07/21 09:37 12/07/21 10:00 Plan Follow up with: YVONNE ARVIZU MD [Primary Care Provider] - 7 Days
[2021-12-07 20:48] VITALS: BP 144/61
--- NOTE | 2021-12-07 21:05 | Progress Note ---
Assessment and Plan - Patient Problems (1) Closed left hip fracture Current Visit: Yes Status: Acute Qualifiers: Encounter type: initial encounter Qualified Code(s): S72.002A - Fracture of unspecified part of neck of left femur, initial encounter for closed fracture Plan to address problem: pain control, n.p.o. after midnight, orthopedic surgery team consulted. Physical therapy consulted. Patient pending placement.. (2) Vascular dementia with behavioral disturbance Current Visit: Yes Status: Acute Plan to address problem: verbal prompting, verbal redirection, benzodiazepine therapy as clinically indicated. (3) Cerebral atherosclerosis Current Visit: Yes Status: Acute Plan to address problem: Risk factor reduction, antiplatelet therapy as clinically indicated. (4) Hypertension Current Visit: Yes Status: Acute Qualifiers: Hypertension type: primary hypertension Qualified Code(s): I10 - Essential (primary) hypertension Plan to address problem: Monitor blood pressure every shift, continue medical management. (5) Diabetes Current Visit: Yes Status: Acute Plan to address problem: Consistent carbohydrate diet, Accu-Chek, insulin protocol, hypoglycemia protocol (6) Hyperlipidemia Current Visit: Yes Status: Acute Qualifiers: Hyperlipidemia type: mixed hyperlipidemia Qualified Code(s): E78.2 - Mixed hyperlipidemia Plan to address problem: Low-cholesterol diet, supportive care. (7) Obesity (BMI 30.0-34.9) Current Visit: Yes Status: Acute Plan to address problem: Balanced diet, increase physical activity discharge. (8) Metabolic syndrome Current Visit: Yes Status: Acute Plan to address problem: Blood pressure control, weight reduction, diabetes control, risk factor reduction. (9) DVT prophylaxis Current Visit: Yes Status: Acute Plan to address problem: SCD to bilateral lower extremities while in bed (10) Advance care planning Current Visit: Yes Status: Acute Plan to address problem: Disease education conducted, care plan discussed, diagnoses discussed, prognosis discussed, patient is full code, +30 minutes. (11) Preventative health care Current Visit: Yes Status: Acute Plan to address problem: Patient family counseled regarding home safety precautions, fall risk protocol, outpatient follow-up with primary care physician for all age and risk factor appropriate screening test. +30 minutes. History Interval history: 81 YO HD #10 with left femoral neck fracture, Debility, pending placement. Orthopedic surgery service consulted. No reported nursing events. Patient remains at baseline level of cognition and function. Patient medically o ptimized. environmental health and safety manager consulted for discharge planning and placement. Hospitalist Physical - Constitutional Vitals: Temp Pulse Resp BP Pulse Ox 98.6 F 107 H 20 144/61 100 12/07/21 20:20 12/07/21 20:20 12/07/21 20:20 12/07/21 20:20 12/07/21 20:20 General appearance: Present: mild distress, obese - EENT Eyes: Present: PERRL ENT: hearing decreased - Neck Neck: Present: supple - Respiratory Respiratory effort: normal Respiratory: bilateral: diminished - Cardiovascular Rhythm: regular Heart Sounds: Present: S1 & S2 - Extremities Extremities: no ischemia Peripheral Pulses: within normal limits - Abdominal General gastrointestinal: soft, non-tender, non-distended - Integumentary Integumentary: Present: clear, erythema - Psychiatric Psychiatric: cooperative - Neurologic Neurologic: CNII-XII intact HEART Score - HEART Score Troponin: Troponin T < 0.010 ng/mL (0.00-0.029) 11/28/21 17:14 Results - Labs CBC & Chem 7: 12/02/21 05:21 12/06/21 07:23 Labs: Laboratory Last Values WBC 9.2 K/mm3 (4.5-11.0) 12/01/21 06:00 RBC 4.84 M/mm3 (3.65-5.03) 12/01/21 06:00 Hgb 13.5 gm/dl (11.8-15.2) 12/02/21 05:21 Hct 41.6 % (35.5-45.6) 12/02/21 05:21 MCV 98 fl (84-94) H 12/01/21 06:00 MCH 31 pg (28-32) 12/01/21 06:00 MCHC 32 % (32-34) 12/01/21 06:00 RDW 14.9 % (13.2-15.2) 12/01/21 06:00 Plt Count 122 K/mm3 (140-440) L 12/01/21 06:00 Lymph % (Auto) 14.3 % (13.4-35.0) 12/01/21 06:00 [place] % (Auto) 9.5 % (0.0-7.3) H 12/01/21 06:00 Eos % (Auto) 1.9 % (0.0-4.3) 12/01/21 06:00 Baso % (Auto) 0.6 % (0.0-1.8) 12/01/21 06:00 Lymph # (Auto) 1.3 K/mm3 (1.2-5.4) 12/01/21 06:00 [place] # (Auto) 0.9 K/mm3 (0.0-0.8) H 12/01/21 06:00 Eos # (Auto) 0.2 K/mm3 (0.0-0.4) 12/01/21 06:00 Baso # (Auto) 0.1 K/mm3 (0.0-0.1) 12/01/21 06:00 Seg Neutrophils % 73.7 % (40.0-70.0) H 12/01/21 06:00 Seg Neutrophils # 6.8 K/mm3 (1.8-7.7) 12/01/21 06:00 Sodium 149 mmol/L (137-145) H 12/06/21 07:23 Potassium 3.7 mmol/L (3.6-5.0) D 12/06/21 07:23 Chloride 113.4 mmol/L (98-107) H 12/06/21 07:23 Carbon Dioxide 24 mmol/L (22-30) 12/06/21 07:23 Anion Gap 15 mmol/L 12/06/21 07:23 BUN 23 mg/dL (9-20) H 12/06/21 07:23 Creatinine 0.9 mg/dL (0.8-1.3) 12/06/21 07:23 Estimated GFR > 60 ml/min 12/06/21 07:23 BUN/Creatinine Ratio 26 % 12/06/21 07:23 Glucose 122 mg/dL (75-100) H 12/06/21 07:23 POC Glucose 141 mg/dL (70-105) H 12/07/21 17:36 Calcium 8.7 mg/dL (8.4-10.2) 12/06/21 07:23 Total Bilirubin 0.90 mg/dL (0.1-1.2) 11/28/21 17:14 AST 22 units/L (5-40) 11/28/21 17:14 ALT 14 units/L (7-56) 11/28/21 17:14 Alkaline Phosphatase 83 units/L (35-129) 11/28/21 17:14 Total Creatine Kinase 621 units/L (55-170) H 11/28/21 17:14 CK-MB (CK-2) 1.9 ng/mL (0.0-4.0) 11/28/21 17:14 CK-MB (CK-2) Rel Index 0.3 (0-4) 11/28/21 17:14 Troponin T < 0.010 ng/mL (0.00-0.029) 11/28/21 17:14 Total Protein 6.9 g/dL (6.3-8.2) 11/28/21 17:14 Albumin 4.0 g/dL (3.9-5) 11/28/21 17:14 Albumin/Globulin Ratio 1.4 % 11/28/21 17:14 Urine Color Yellow (Yellow) 11/28/21 16:59 Urine Turbidity Clear (Clear) 11/28/21 16:59 Specific [place] (Man) 1.010 (1.003-1.030) 11/28/21 16:59 Ur Protein (Man) Negative mg/dL (Negative) 11/28/21 16:59 Ur Ketones (Man) Negative (Negative) 11/28/21 16:59 Ur Nitrite (Man) Negative (Negative) 11/28/21 16:59 Ur Reducing Substances Not Reportable 11/28/21 16:59 Urine Bilirubin (Man) Negative (Negative) 11/28/21 16:59 Urine Ictotest Not Reportable 11/28/21 16:59 Leukocyte Esterase (Man) Negative (Negative) 11/28/21 16:59 Urine WBC (Auto) 1.0 /HPF (0.0-6.0) 11/28/21 16:59 Urine RBC (Auto) 4.0 /HPF (0.0-6.0) 11/28/21 16:59 U Epithel Cells (Auto) 2.0 /HPF (0-13.0) 11/28/21 16:59 Urine RBC (Manual) Negative (Negative) 11/28/21 16:59 Urine Mucus Few /HPF 11/28/21 16:59 Blood Type O POSITIVE 12/01/21 06:05 Antibody Screen Negative 12/01/21 06:05 Gandhi/IV: Voiding Method Incontinent Active Medications - Current Medications Current Medications: Generic Name Dose Route Start Last Admin Trade Name Freq PRN Reason Stop Dose Admin Acetaminophen 650 mg 11/28/21 20:27 Acetaminophen 325 Mg Tab PO Q4H PRN Pain MILD(1-3)/Fever >100.5/GASTON Albuterol 2.5 mg 11/28/21 20:27 Albuterol 2.5 Mg/3 Ml Nebu IH Q4HRT PRN Shortness Of Breath Amlodipine Besylate 10 mg 12/02/21 10:00 12/07/21 09:37 Amlodipine 10 Mg Tab PO 10 mg DAILY FLORINDA Administration Dextrose 50 ml 11/28/21 20:28 Dextrose 50% In Water (25gm) 50 Ml Syringe IV Q30MIN PRN Hypoglycemia Protocol Docusate Sodium 100 mg 12/04/21 12:00 12/07/21 09:38 Docusate Sodium 100 Mg Cap PO 100 mg BID FLORINDA Administration Enoxaparin Sodium 40 mg 12/02/21 10:00 12/07/21 09:38 Enoxaparin 40 Mg/0.4 Ml Inj SUB-Q 40 mg QDAY FLORINDA Administration Dextrose 1,000 mls @ 75 mls/hr 12/03/21 12:00 12/07/21 00:48 D5w IV 75 mls/hr DIRECT FLORINDA Administration Insulin Human Regular 0 units 11/28/21 22:00 12/07/21 16:30 Insulin Regular, Human 100 Units/1 Ml SUB-Q Not Given ACHS FLORINDA Protocol Memantine 5 mg 12/01/21 22:00 12/07/21 09:37 Memantine 5 Mg Tab PO 5 mg BID FLORINDA Administration Metoprolol Tartrate 12.5 mg 12/02/21 10:00 12/07/21 11:12 Metoprolol Tartrate 25 Mg Tab PO 12.5 mg BID FLORINDA Administration Morphine Sulfate 2 mg 12/01/21 14:36 Morphine 2 Mg/1 Ml Inj IV Q4H PRN Pain, Moderate (4-6) Morphine Sulfate 4 mg 12/01/21 14:36 12/05/21 05:14 Morphine 4 Mg/1 Ml Inj IV 4 mg Q4H PRN Administration Pain , Severe (7-10) Ondansetron HCl 4 mg 11/28/21 20:27 Ondansetron 4 Mg/2 Ml Inj IV Q8H PRN Nausea And Vomiting Oxycodone/Acetaminophen 1 tab 11/28/21 20:27 11/30/21 00:32 Oxycodone /Acetaminophen 5-325mg Tab PO 1 tab Q6H PRN Administration Pain, Moderate (4-6) Polyethylene Glycol 17 gm 12/04/21 14:00 12/07/21 09:37 Polyethylene Glycol 3350 17 Gm Powder PO 17 gm QDAY FLORINDA Administration Quetiapine Fumarate 25 mg 12/02/21 22:00 12/07/21 09:38 Quetiapine 25 Mg Tab PO 25 mg BID FLORINDA Administration Sodium Chloride 10 ml 11/28/21 22:00 12/07/21 09:38 Sodium Chloride 0.9% 10 Ml Flush Syringe IV 10 ml BID FLORINDA Administration Sodium Chloride 10 ml 11/28/21 20:27 12/01/21 00:25 Sodium Chloride 0.9% 10 Ml Flush Syringe IV 10 ml PRN PRN Administration LINE FLUSH Nutrition/Malnutrition Assess - Dietary Evaluation Nutrition/Malnutrition Findings: Nutrition Notes Start: 11/29/21 17:47 Freq: Status: Active Protocol: Document 12/06/21 09:18 DANIA (Rec: 12/06/21 09:52 DANIA [id number]) Nutrition Notes Initial or Follow up Brief Note Current Diagnosis Diabetes,Hypertension, Hyperlipidemia Other Pertinent Diagnosis s/p L-Hip Hemiarthroplasty, Hypernatremia, Dementia w/ Behavioral Disturbanc Current Diet Pureed Diet (since L 12/03). Labs/Tests 12/06: Na 149, Cl 113.4, BUN 23, Glu 122. Pertinent Medications 12/06: D5w @ 75ml/hr, others nutritionally unremakable. Height 6 ft 2 in Weight 117.3 kg [place] Body Weight (kg) 86.36 BMI 33.2 Weight change and time frame No body weight change reported in 1 week. Weight Status Obese Subjective/Other Information RD consult for routine F/U on dietary advancement. Per MD, diet change to Pureed, Pt's PO intake of meals has been Fair (>50%) and faily tolerated, according to ADL notes. I will resume dietary supplementation to compensate for poor or insufficient PO intake of meals during LOS. Pt is on Room Air, O2 saturation @ 96%, according to Physical Assessment History notes. Pt remains incontinent, according to Physical Assessment History notes. Pt shows a surgical wound on L -Hip as sign of concern for skin risk at the time, according to Physical Assessment History notes. Pt is pending placement to SNF , according to Progress notes. Percent of energy/protein needs met: Prescribed Pureed Diet provides for energy/protein needs (1,804 Kcal/77 g) during LOS; additionally, Dietary Supplements will compensate for possible poor or insufficient PO intake of meals with 660 Kcal and 30 g of protein. Skin Integrity/Comment L-Hip surgical wound. Current % PO Fair (50-74%) #1 Nutrition Diagnosis Inadequate oral intake Comments: Pureed, Pt's PO intake of meals has been Fair (>50%) and faily tolerated, according to ADL notes. Diagnosis Progress(for reassessment Continues documentation) Is patient on ventilator? No Is Patient Ambulatory and/or Out of Bed No REE-([facility]-confined to bed) [phone] Calculation Used for Recommendations [facility] Additional Notes Protein: 1.2-1.5 g/Kg AdjBW; 122-153 g/day. Fluids: 1 ml/Kcal, or as per MD. Nutrition Intervention Change Diet Order: Continue Pureed Diet as tolerated. Add Supplement/Snack (indicate name/kcal Resume 8 fl oz Glucerna; TID. /protein ) Provides kCal: 660 Provides Protein (gm) 30 Goal #1 Compensate, through dietary supplementation, for possible poor or insufficient PO intake of meals during LOS. Follow-Up By: 12/13/21 Additional Comments Continue monitoring food tolerance, %PO intake of meals , dietary supplements, and BM.
== END 2021-12-07 20:20 | disposition home or self-care (01) | DRG 522 ==
LOC: ED 14:49 → 3A 20:27
PROVIDERS: ADMIT Internal Medicine; ATTEND Internal Medicine
PROC: 0SRS0JZ Replacement of Left Hip Joint, Femoral Surface with Synthetic Substitute, Open Approach (ICD-10-PCS; principal; 2021-12-01)
DX: S72.002A Fracture of unspecified part of neck of left femur, initial encounter for closed fracture (principal); F01.51 Vascular dementia, unspecified severity, with behavioral disturbance; E87.0 Hyperosmolality and hypernatremia; I67.2 Cerebral atherosclerosis; E66.9 Obesity, unspecified; E88.81 Metabolic syndrome and other insulin resistance; I10 Essential (primary) hypertension; E11.9 Type 2 diabetes mellitus without complications; W18.39XA Other fall on same level, initial encounter; Y93.89 Activity, other specified; Y92.89 Other specified places as the place of occurrence of the external cause; Y99.8 Other external cause status; E78.2 Mixed hyperlipidemia; Z68.33 Body mass index [BMI] 33.0-33.9, adult; Z83.3 Family history of diabetes mellitus; Z79.4 Long term (current) use of insulin; Z82.49 Family history of ischemic heart disease and other diseases of the circulatory system
CPT/HCPCS: 36415; 70450; 72125; 72192; 80048; 80053; 81001; 82550; 82553; 82962; 84484; 85014; 85018; 85025; 86850; 86900; 86901; 88304; 88311; 93005; 94760; 96372; 96374; 96375; 99285; G0378; J1815; J3490; C1776; J0690; J1030; J1170; J1630; J1650; J1885; J2270; J2405; J2704; J3010; J7030; J7050; J7070; J7120